=== PATIENT | female | born 2005 | race Caucasian/White ===

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

== ENCOUNTER 2023-02-06 16:21 | Emergency (ER) | payer OTHER, SELFPAY ==
--- NOTE | ~2023-02-06 | XR_ITS ---
EXAMINATION: XR ANKLE, RIGHT CLINICAL INFORMATION: Status post injury. Pain COMPARISON: None available. TECHNIQUE: AP, lateral, and mortise views of the right ankle. FINDINGS: No fracture. Alignment is anatomic. No erosions. Joint spaces are maintained. Soft tissues are normal. XR/XR ankle RT min 3V IMPRESSION: Normal right ankle.
--- NOTE | 2023-02-06 16:48 | ED.LOWEXIN ---
HPI - Extremity Injury (Lower) General Chief Complaint: Extremity Injury, Lower Stated Complaint: ?R ankle sprain Time Seen by Provider: 02/06/23 16:56 Source: patient Mode of arrival: ambulatory Limitations: no limitations History of Present Illness HPI Narrative: 17 yo female with history of morbid obesity presents to the ER for evaluation of right ankle pain after she twisted it while walking down the stairs today. Limited weight bearing since. She developed swelling shortly after the injury. Pain is located on the top of the ankle and the lateral aspect. She denies and numbness or tingling. No other injuries. MD complaint: ankle injury Onset (ago): hour(s) Injury: Right: ankle Type of Injury: inversion Place: home Severity: severe Severity scale (1-10): 9 Relieving factors: immobilization and rest Exacerbating factors: weight bearing, movement and palpation Context: fall Associated symptoms: swelling and unable to bear weight Other symptoms: none Related Data Home Medications Medication Instructions Recorded Confirmed cholecalciferol (vitamin D3) 50 100 mcg PO DAILY 10/03/21 02/24/22 mcg (2,000 unit) capsule oxcarbazepine 300 mg 300 mg PO DAILY 10/03/21 02/24/22 tablet,extended release 24 hr (Oxtellar XR) oxcarbazepine 600 mg 1,200 mg PO QPM 10/03/21 02/24/22 tablet,extended release 24 hr (Oxtellar XR) Previous Rx's Medication Instructions Recorded cyanocobalamin (vitamin B-12) 250 250 mcg PO DAILY #30 tabs 10/10/21 mcg tablet Allergies Allergy/AdvReac Type Severity Reaction Status Date / Time grass pollen Allergy Mild throat Verified 01/18/23 14:07 latex [LATEX] Allergy Unknown RASH Verified 01/18/23 14:07 Review of Systems Review of Systems: Yes all other systems are reviewed and are negative [facility] Past Medical History Medical History Epilepsy Surgical History Hx of tonsillectomy Family History Family History Mother Diabetes Father No problems noted. Brother No problems noted. Sister No problems noted. Social History Social History Alcohol intake: never Patient Tobacco Use Status: Never used Tobacco Advance Directives: No Advance Directives Information Provided: No Physical Exam Vital Signs: Vital Signs: Last Vital Signs Temp 98.3 F 02/06/23 16:50 Pulse 86 02/06/23 16:50 Resp 18 02/06/23 16:50 BP 156/93 H 02/06/23 16:50 Pulse Ox 100 02/06/23 16:50 O2 Del Method Room Air 02/06/23 16:50 BMI result Body Mass Index 51.5 Appearance: Alert. Oriented X3. No acute distress. HEENT: normal inspection CVS: Normal heart rate and rhythm. Pulses normal. Respiratory: No respiratory distress. Skin: Skin warm and dry. Normal skin color. Normal skin turgor. No rashes. Extremities: right ankle with moderate swelling of the lateral malleolus and anterior ankle. no gross deformity. limited plantarflexion and dorsiflexion due to pain. foot is warm and well perfused. NV intact distally. Neuro: Oriented X 3. No motor deficit. No sensory deficit. Medical Decision Making Medical Decision Making MDM Narrative: 17 yo female presenting for right ankle pain after twisting injury today. unable to bear weight since the injury x-ray negative for fracture will treat for sprain, crutches and thi wrap provided. patient counseled on dx and tx. stable for d/c home Differential Diagnosis Differential Diagnoses: The differential diagnosis associated with the presentation includes ankle sprain, ankle strain, ankle fracture Independent Interpretation I performed an independent interpretation of an: Plain X-Ray Interpretation: no appreciated fracture, agree w/ radiology read Radiology Impression Discussion of test interpretation with radiology: I have reviewed the radiologist's reading. Radiologist Impression: XR/XR ankle RT min 3V IMPRESSION: Normal right ankle. Independent Historian Clinical information obtained from an independent historian. History obtained from or confirmed by: Parent External Record Review External record reviewed: Prior outpatient labs Prescription Management I considered prescription management with: Pain Medication Chronic Conditions Patient?s care impacted by: Other (morbid obesity) Critical Care Time Critical Care Time Critical Care Time: No Discharge Plan Discharge Clinical Impression: Ankle sprain and strain Patient Disposition: Home, Self-Care Instructions: Ankle Sprain (DC) Additional Instructions: Your x-ray today was normal. Rest your ankle and elevate your foot when possible. Recommend THI wrap for support and compression. Use ice several times per day for the next 48 hours. You may bear weight as tolerated. If pain is too severe, use crutches until better. Take Motrin and/or Tylenol as needed for pain. Follow up with your doctor as needed. Prescriptions: No Action cyanocobalamin (vitamin B-12) 250 mcg tablet 250 mcg PO DAILY Qty: 30 5RF Oxtellar XR 600 mg tablet extended release 24 hr 1,200 mg PO QPM Oxtellar XR 300 mg tablet extended release 24 hr 300 mg PO DAILY cholecalciferol (vitamin D3) 50 mcg (2,000 unit) capsule 100 mcg PO DAILY Interventions: ED Discharge Assessment Last Done: 02/06/23 17:41 Discharge Date/Time: 02/06/23 17:42
[2023-02-06 16:50] VITALS: BP 156/93; PULSE 86; RESP 18; TEMP 36.8; O2SAT 100; BMI 51.5
== END 2023-02-06 17:42 | disposition home or self-care (01) ==
LOC: HO.ED 17:34
PROVIDERS: Emergency Provider Internal Medicine; PCP Pediatrics
DX: S93.401A Sprain of unspecified ligament of right ankle, initial encounter (principal); W10.9XXA Fall (on) (from) unspecified stairs and steps, initial encounter; Y93.9 Activity, unspecified; Y92.9 Unspecified place or not applicable; Y99.9 Unspecified external cause status; Z79.899 Other long term (current) drug therapy
CPT/HCPCS: 73610; 99282; 99283

== ENCOUNTER 2023-02-26 10:37 | Outpatient (AMB) | payer OTHER, SELFPAY ==
--- NOTE | 2023-02-26 10:38 | MHC.OFFVISWM ---
Intake VS Expanded 02/26/23 10:46 Height 5 ft 5 in Weight 301 lb 12.8 oz BMI 50.2 BP 139/81 Blood Pressure Location Rt brachial Blood Pressure Position Sitting Pulse 103 H Pulse Source Pulse Oximeter Temp 97.2 F Temperature Source Temporal Artery Scan Pulse Oximetry 98 Oxygen Delivery Method Room Air Body Fat 146.0 Body Fat Percentage 48.4 Free Fat Mass 155.6 Muscle Mass 148.0 Visceral Mass 14.0 Water Mass 112.2 Intake Visit Reasons: (OV) Re-Est SW Building Rental Manager Required: No Allergies grass pollen Allergy (Mild, Verified 02/26/23 10:42) throat latex [LATEX] Allergy (Unknown, Verified 02/26/23 10:42) RASH Medication List - Last Reconciled 02/26/23 by TEE Fritz cholecalciferol (vitamin D3) 100 mcg PO DAILY cyanocobalamin (vitamin B-12) 250 mcg PO DAILY oxcarbazepine ER (Oxtellar XR) 1,200 mg PO QPM oxcarbazepine ER (Oxtellar XR) 300 mg PO DAILY HPI HPI Comments History of Present Illness Details Pt is here to re-start the [facility] [place] [place] Weight Management surgical weight loss program. She was in the program September through March 2022 and left because she was not yet ready. She feels as though she is now ready to commit. Her goal is to lose weight and achieve a healthy lifestyle. She reports first being concerned about her weight over the last 2-3 years, highest weight to date was 301. Current weight is 301.8 pounds with a BMI of 50.2. She has tried multiple methods of weight loss including fad diets and without permanent results. She lives with her family. She currently is not working. She wakes at:?8 am, and goes to bed at?10 pm. Dinner is at 4 pm. Breakfast: skip or sausages, w fruit AM snack: skip Lunch: rice and chicken or beef w rice PM snack: fruit Dinner: rice and meat After dinner: skip Other snacks: none Liquids: 32-48 oz water, 2-3 x per week 20 oz sprite, 20 oz oj 3-4 x per week Alcohol/marijuana/tobacco intake: none Exercise: walking, no gym membership, has [facility] Medical History Epilepsy Surgical History Hx of tonsillectomy Family History Mother Diabetes Father No problems noted. Brother No problems noted. Sister No problems noted. Social History Alcohol intake: never Patient Tobacco Use Status: Never used Tobacco Review of Systems Const All systems reviewed & are unremarkable except as noted in HPI and below Physical Exam Vital Signs: Last Vital Signs Temp 97.2 F 02/26/23 10:46 Pulse 103 H 02/26/23 10:46 BP 139/81 02/26/23 10:46 Pulse Ox 98 02/26/23 10:46 Oxygen Delivery Method Room Air 02/26/23 10:46 BMI result Body Mass Index 50.2 Const General: cooperative, healthy appearing and no acute distress Orientation/consciousness: patient oriented x3 HEENT Head: Yes normal to inspection Ears: hearing grossly normal bilaterally General nose exam: Normal external nose present Face and sinus: Yes normal facial exam Eyes General: appearance normal, both eyes and all related structures Resp Effort & Inspection: normal respiratory effort Auscultation: clear to auscultation bilaterally Cardio Rate: regular rate Rhythm: regular rhythm Heart sounds: S1 normal heart sound present and S2 normal heart sound present GI Inspection: Yes normal to inspection, No distended and Yes obesity Palpation (GI): Soft to palpation, nontender and no guarding Auscultation: normal bowel sounds Skin General skin exam: no rashes or lesions noted Neuro General: patient oriented x3 Extrem General: No edema Psych Appearance: grossly normal Mental Status: mental status grossly normal Speech and movement: Normal speech and movement present Affect: normal affect Attitude: cooperative Assessment & Plan Assessment & Plan (1) Morbid obesity: Code(s): E66.01 - Morbid (severe) obesity due to excess calories Plan: This is a?17 yo female who will re-start our SWL program to prepare for bariatric surgery.? Blood work, h pylori , CXR, ECG, Abd US and UGI have been ordered. She is being scheduled for RD and BH initial consultations. She will start SWL classes and watch the first three videos before her next appointment. ? Adequate sleep of 7-8 hours per night discussed, awakening at 8 am and going to bed around 10 pm ? Purchase body composition analyzer scale (Germania ayala or Dottie recommended) and check weight weekly. The best time to do this is first thing in the morning after going to the bathroom. 1. Nutritional counseling: Be sure to careful read the number of scoops per shake Start with 2 Premier Protein shakes ([employer], [employer], [facility]), First shake (2 scoops in 8-10 oz low fat unsweetened almond milk or water) at 9am-11am, []am-[]pm 1 protein bar (Fulfil bars at [employer], [facility], or [employer]) at 12pm-2pm. Another shake with 1 scoop in 8 oz unsweetened almond milk at 2pm-4pm. Dinner at 4pm (10 forks of protein and 10 forks of salad/vegetables). Meal to include lean meat (beef, fish, pork, turkey, chicken), cooked vegetables or a salad with olive oil and/or fruits (berries, pears, apples, kiwi). Avoid salt, breads, potatoes, rice, pasta, desserts. Another bar at 7pm-9pm. Try to drink 64 oz of water daily and avoid soda and juices. ?2. Each shake would be drunk slowly, like coffee in a period of 2 hours. ?3. Cut each bar in 4 pieces and eat each piece in 30 min ?to make each bar last 2 hours. ?4. I emphasized the importance of measuring accurately the food portion and measure it carefully when serving the food on the plate ?5. The meal portions include 10 full-size forks of meat and 10 full-size forks of salad. You always eat the meat portion but you can replace up to half of the forks of salad/vegetables with rice, potatoes or pasta, or a fruit ?if you like. The less you do it the better weight loss will be. ?6. One full-size fork is what can be scooped on the fork without falling aside and not what can be bit with the fork. Use regular forks like those you find in a typical restaurant. ?7.? Please send me weight measurements as soon as possible and then once a week. Always include your diet and exercise plan. Alternatively come weekly at the office for weight checks and send me the measurements. ?8. Exercise counseling: Begin by watching a stretching for beginners video. Start slowly and begin to stretch your muscles. You should do this before and after each exercise session to prevent injury. Please consider joining [facility] gym near your home. Ask the retail advertising sales manager or one of the trainers how to use the machines if you are unfamiliar with them. Start elliptical with a resistance of 2. Increase resistance by 1 every 3 min to your most comfortable resistance with a max resistance of 8. Reduce the resistance by 1 every 3 minutes back down to 2 and repeat cycles for 300 calories. Alternatively, start treadmill with a speed of 3.0 and incline of 0, increasing incline by 1 every 3 minutes to the highest comfortable level (max 6 for now) then decrease in the same fashion. Repeat process to a goal of 300 calories. Goal of 2000 calories burned or more weekly. You may also consider use of the stationary bike. The easiest would be to chose the fat-burn or interval training program on the machine and do this until you reach the 300 calorie goal. Alternatively, you can manually adjust the resistance in a similar fashion as mentioned above, (resistance of 2-8 with a goal speed of 12 mph). Tracking calories is essential. 9. Alternatively start walking outside daily, tracking calories with a goal of 300 calories per day, daily. You can download the sherif [employer] which can track your time, distance and calories while walking outside. You press start in the sherif when you start and then stop when you are finished. You can apply the above recommendations to your elliptical machine at home if you are not yet able to join the gym. 10.? It is important to avoid for at least 18 months postoperatively and it has been discussed at the information session 11. Please get labs, EKG and chest X-Ray within 1 week. 12. Discussed and answered all questions regarding?obtained consent to participate in the [facility]?Registry. 13. Please follow the diet plan exactly, without any change. If you do not like something about the plan or you feel hungry, you need to communicate with me so I can help you revise the plan. You should not change the plan yourself. Text me at [phone] 14. Goal is to lose at least 12 pounds in the first month 15. Goal is to lose 10% of your weight before surgery, which is about 30 lbs. Ultimate weight goal: 271 lbs before surgery Patient is morbidly obese and is not considered stable at this time.?I spent a total of 70 minutes reviewing/updating records, examining the patient and counseling the patient on weight management as detailed above. Orders: Orders Vitamin B12 and Folate Today E66.01 - Morbid (severe) obesity due to excess calories Comprehensive Met. Panel Today E66.01 - Morbid (severe) obesity due to excess calories C Reactive Protein Today E66.01 - Morbid (severe) obesity due to excess calories Ferritin Today E66.01 - Morbid (severe) obesity due to excess calories Hemoglobin A1c Today E66.01 - Morbid (severe) obesity due to excess calories Insulin Today E66.01 - Morbid (severe) obesity due to excess calories IRON PROFILE Today E66.01 - Morbid (severe) obesity due to excess calories Lipid Panel Today E66.01 - Morbid (severe) obesity due to excess calories PTHI Today E66.01 - Morbid (severe) obesity due to excess calories TSH reflex Free T4 Today E66.01 - Morbid (severe) obesity due to excess calories Vitamin A Today E66.01 - Morbid (severe) obesity due to excess calories Vitamin B1 Today E66.01 - Morbid (severe) obesity due to excess calories Vitamin D 25-OH Total Today E66.01 - Morbid (severe) obesity due to excess calories Zinc Today E66.01 - Morbid (severe) obesity due to excess calories ECG 12 lead EKG Today E66.01 - Morbid (severe) obesity due to excess calories FL upper GI w air Today E66.01 - Morbid (severe) obesity due to excess calories Complete Blood Count Auto Diff Today E66.01 - Morbid (severe) obesity due to excess calories H Pylori Breath Test Today E66.01 - Morbid (severe) obesity due to excess calories US abdomen comp w elastography Today E66.01 - Morbid (severe) obesity due to excess calories XR chest 2V Today E66.01 - Morbid (severe) obesity due to excess calories Referrals Behavioral Health Referral E66.01 - Morbid (severe) obesity due to excess calories Nutrition/Dietitian Referral E66.01 - Morbid (severe) obesity due to excess calories Coding Level of Care Code Est Pt Level 5 (52678) Diagnoses Morbid obesity E66.01 Time Spent (min) 70
[2023-02-26 10:46] VITALS: BP 139/81; PULSE 103; TEMP 36.2; O2SAT 98; BMI 50.2
== END 2023-02-26 12:10 | disposition home or self-care (01) ==
PROVIDERS: PCP Pediatrics; Visit Provider Physician Assistant Surgical
DX: E66.01 Morbid (severe) obesity due to excess calories (principal); Z68.54 Body mass index [BMI] pediatric, 95th percentile for age to less than 120% of the 95th percentile for age
CPT/HCPCS: 99215

== ENCOUNTER → 2023-02-26 10:37 | Outpatient (BNVA) | payer OTHER, SELFPAY | PROVIDERS: PCP Pediatrics; Visit Provider Physician Assistant Surgical | DX: E66.01 Morbid (severe) obesity due to excess calories (principal); Z68.43 Body mass index [BMI] 50.0-59.9, adult | CPT/HCPCS: 99212 ==

== ENCOUNTER 2023-03-09 07:12 | Outpatient (REF) | payer OTHER, SELFPAY ==
--- NOTE | ~2023-03-09 | XR_ITS ---
EXAMINATION: XR CHEST 2 VIEWS CLINICAL INFORMATION: Morbid obesity. COMPARISON: Chest radiographs dated 10/07/2021. TECHNIQUE: Frontal and lateral views of the chest were obtained. FINDINGS: The heart, great vessels, pulmonary vasculature and mediastinum are normal. The lungs show no focal infiltrate, effusion or pneumothorax. There is no acute osseous abnormality. XR/XR chest 2V IMPRESSION: No active cardiopulmonary disease.
--- NOTE | 2023-03-09 07:21 | ECG_ITS ---
Test Reason : e66.01 Blood Pressure : / mmHG Vent. Rate : 077 BPM Atrial Rate : 077 BPM P-R Int : 146 ms QRS Dur : 088 ms QT Int : 400 ms P-R-T Axes : 037 046 048 degrees QTc Int : 452 ms Normal sinus rhythm Normal ECG When compared with ECG of 07-OCT-2021 15:04, No significant change was found Referred By: David Mock Electronically Signed By:RODO GARRETT
[2023-03-09 07:29] LABS: MANUAL DIFF FLAG NO
[2023-03-09 07:50] LABS: Basophils Percent Auto 0.2 % (0-2); Eosinophils Absolute Auto 0.1 X10*3/uL (0.0-0.4); Eosinophils Percent Auto 0.9 % (0-4); Hematocrit 38.5 % (37.0-47.0); Hemoglobin 12.7 g/dl (12.0-16.0); Imm Gran Abs Auto 0.01 X10*3/uL (0.00-0.03); Imm Gran Pct Auto 0.1 % (0.0-0.4); Lymphocytes Absolute Auto 2.3 X10*3/uL (1.2-4.9); Lymphocytes Percent Auto 28.4 % (20-40); Mean Corpuscular Hemoglobin 25.9 pg (27.0-33.0); Mean Corpuscular Volume 78.6 fL (80.0-98.0); Mean Platelet Volume 10.9 fL (9.4-12.3); Monocytes Absolute Auto 0.6 X10*3/uL (0.1-1.2); Neutrophils Absolute Auto 5.1 x10*3/uL (2.0-8.3); Neutrophils Percent Auto 63.4 % (45-73); Platelet Count 257 X10*3/uL (160-400); Red Cell Distribution Width 13.9 % (11.0-16.0)
[2023-03-09 07:54] LABS: Estimated Average Glucose 97 mg/dL
[2023-03-09 08:03] LABS: Alanine Aminotransferase 14 U/L (0-31); Albumin Level 4.3 g/dL (3.5-5.0); Alkaline Phosphatase 102 U/L (39-117); Anion Gap 13 (12-20); Aspartate Amino Transferase 14 U/L (5-31); Bilirubin Total 0.3 mg/dL (0.0-1.0); Blood Urea Nitrogen 16 mg/dL (9-16); C Reactive Protein 0.77 mg/dL (< or = 0.50); Carbon Dioxide 22 mmol/L (22-29); Chloride 107 mmol/L (96-108); Cholesterol 193 mg/dL (<200); Estimated Glomerular Filt Rate > 60; Glucose Random 91 mg/dL (60-115); HDL Cholesterol 46 mg/dL (>40); Iron 50 mcg/dL (30-160); LDL Cholesterol Calculated 129 mg/dL (<100); Percent Iron Saturation 20 % (15-50); Potassium 3.7 mmol/L (3.3-5.1); Sodium 138 mmol/L (135-145); Total Iron Binding Capacity 256 mcg/dL (228-428); Triglycerides 91 mg/dL (<150); Unsaturated Iron Binding 206 ug/dL
[2023-03-09 08:17] LABS: Ferritin 37 ng/mL (10-122); Insulin 18 uU/mL (2-29); TSH reflex Free T4 4.63 uIU/mL (0.32-4.0); Vitamin D 25-OH Total 73.6 ng/mL (>30)
[2023-03-09 08:37] LABS: Folate 9.2 ng/mL (> or = 4.0); Vitamin B12 564 pg/mL (200-900)
[2023-03-09 08:58] LABS: Free T4 (Free Thyroxine) 0.83 ng/dL (0.71-1.85)
[2023-03-11 12:39] LABS: Calcium (PTHI) 9.6 mg/dL (8.9-10.4); PTHI 44 pg/mL (16-77)
[2023-03-14 00:34] LABS: Zinc 86 mcg/dL (60-130)
[2023-03-14 16:13] LABS: Vitamin B1 8 nmol/L (8-30)
[2023-03-15 17:24] LABS: Vitamin A 31 mcg/dL (26-72)
== END 2023-03-09 07:13 | disposition home or self-care (01) ==
LOC: HO.XRAY 07:12
PROVIDERS: Visit Provider Physician Assistant Surgical
DX: E66.01 Morbid (severe) obesity due to excess calories (principal)
CPT/HCPCS: 36415; 71046; 80053; 80061; 82306; 82607; 82728; 82746; 83036; 83525; 83540; 83970; 84425; 84439; 84443; 84590; 84630; 85025; 86140; 93005

== ENCOUNTER 2023-03-29 13:29 | Outpatient (AMB) | payer OTHER, SELFPAY ==
--- NOTE | 2023-03-29 13:07 | MHC.AMNUTRGE ---
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 Allergies grass pollen Allergy (Mild, Verified 02/26/23 10:42) throat latex [LATEX] Allergy (Unknown, Verified 02/26/23 10:42) RASH HPI Nutrition Presentation Details LOTUS NOTES ADMINISTRATOR weight 300# current weight 293# SHe is Re-establishing in our program Reason for consult elevated BMI Diet Assmnt Details 9am premier premade 12pm fullfill bar 2pm shake 4pm dinner - cucumbers and chicken 7pm shake started Feb 27 Exercise; walking outside 15 minutes or less and lifting (but later reports just lifting things during the day) SWL online classes: She cancelled appt with TEE Hernandez yesterday due to feeling sick. She n/s to apt with Crys on 03/14. Dietary counseling reduction Diagnosis Nutrition problem #1 overweight/obesity As related to (etiology) #1 excess energy intake and physical inactivity As evidenced by (sign/symptom) #1 high BMI Monitoring/Goals Nutrition problem monitoring total energy intake, level of knowledge/skill, total PRO intake, total CHO intake, weight and oral fluids Outcome progress not met Learning/Education Readiness to learn fair Stages of change action Most Recent Diabetes Results: Cholesterol 193 mg/dL (<200) 03/09/23 HDL Cholesterol 46 mg/dL (>40) 03/09/23 Triglycerides 91 mg/dL (<150) 03/09/23 Creatinine 0.80 mg/dL (0.5-1.4) 03/09/23 Blood Urea Nitrogen 16 mg/dL (9-16) 03/09/23 Sodium 138 mmol/L (135-145) 03/09/23 Potassium 3.7 mmol/L (3.3-5.1) 03/09/23 Chloride 107 mmol/L (96-108) 03/09/23 Carbon Dioxide 22 mmol/L (22-29) 03/09/23 Calcium 10.0 mg/dL (8.4-10.2) 03/09/23 AST 14 U/L (5-31) 03/09/23 ALT 14 U/L (0-31) 03/09/23 Total Protein 8.0 g/dL (6.5-8.0) 03/09/23 Albumin 4.3 g/dL (3.5-5.0) 03/09/23 [facility] Medical History Epilepsy Surgical History Hx of tonsillectomy Family History Mother Diabetes Father No problems noted. Brother No problems noted. Sister No problems noted. Social History Alcohol intake: never Patient Tobacco Use Status: Never used Tobacco Assessment & Plan Assessment & Plan (1) Morbid obesity: Code(s): E66.01 - Morbid (severe) obesity due to excess calories Patient Instructions: unsure if pt is ready for surgical program. Minimally engaged today. Did no schedule a nutrition follow up but is not cleared and will need to take classes as well. Telehealth Telehealth Location of provider rendering services: other (home address [facility] ) Location of patient: address on file Patient Identification confirmed using: Name, : Yes Telehealth method: voice only Patient verbally consented to treatment: Yes Patient verbally consented to billing insurance company: Yes Patient informed of any privacy concerns related to visit: Yes Minutes spent on Phone/Video with Pt.: 15 Coding Level of Care Code Nutr Indiv Subseq (21478) Diagnoses Morbid obesity E66.01 Time Spent (min) 15
[2023-03-29 13:18] VITALS: BMI 48.8
--- OUTSIDE RECORDS SUMMARY | 2023-03-29 13:30 | XMS_ITS | Continuity of Care Document ---
Author Name Unknown Organization [facility] Address [address] [place] [id number]- Care Team Providers Care Pet Nutrition Specialist Name Role Phone Jose Harris MD, Kulwant Sheikh Primary Care Physicia n [place] [facility] [place]24[place] - 01/24/[address] [address]- [facility] Discharge Disposition: A-D/C Home Attending Physician: Kendy Yu MD Admitting Physician: Kendy Yu MD Referring Physician: Not on Staff, Referring MD Allergies, Adverse Reactions, Alerts Substance Reaction Severity Status Latex Active Other Environmental Allergy Active Medications Advair Diskus 100 mcg-50 mcg inhalation powder 1 puffs, Inhalation, 2 times a day, 0 Refills, Maintenance Start Date: 08/02/12 Status: Ordered clonazepam 1 mg oral tablet, disintegrating See Instructions, 1 tablet between cheek and gums prn seizure greater than 3 minutes Two labelled bottles please, # 8 tablet, 0 Refills, Maintenance Start Date: 06/18/12 Status: Ordered Diastat AcuDial 10 mg rectal kit = 10 mg, Rectally, Once, PRN as needed for seizure activity longer than 5 minutes, # 1 kit, 0 Refills, Soft Stop, 09/09/16 6:18:19 Start Date: 09/09/16 Status: Ordered diazepam 10 mg rectal kit 1 each = 10 mg, Rectally, Once, PRN seizure activity, Give 1 tab rectally for seizure lasting more than 3 minutes. Written directions given to Mom, # 1 kit, 0 Refills, Soft Stop, Kit Start Date: 06/15/12 Status: Ordered EpiPen 2-Theodore = 0.3 mg, Intramuscular, Once, 0 Refills, Maintenance Start Date: 06/18/12 Status: Ordered ibuprofen 400 mg oral tablet 1 tablet = 400 mg, By Mouth, Every 6 hours, PRN as needed for pain, # 12 tablet, 0 Refills, Maintenance, 12/04/14 0:26:44, Tablet Start Date: 12/04/14 Stop Date: 12/07/14 Status: Ordered levetiracetam 100 mg/mL oral solution 3 mL = 300 mg, By Mouth, 2 times a day, 0 Refills, Maintenance, Solution Start Date: 06/23/13 Status: Ordered montelukast 5 mg oral tablet, chewable 1 tablet = 5 mg, Chew, Daily in PM, # 30 tablet, 0 Refills, Maintenance, Chew Tablet Start Date: 06/23/13 Status: Ordered ondansetron 4 mg oral tablet, disintegrating 1 tablet = 4 mg, By Mouth, Every 8 hours, # 10 tablet, 0 Refills, Soft Stop, Tablet, 1 tablet By Mouth Every 8 hours Start Date: 06/23/13 Status: Ordered Oxcarbazepine Liquid 3 mL, By Mouth, 2 times a day, 3 bT=[id number], 0 Refills, Maintenance, Suspension Start Date: 06/23/13 Status: Ordered ProAir HFA 2 puffs, Inhalation, 4 times a day, 0 Refills, Maintenance Start Date: 06/18/12 Status: Ordered pyridoxine 50 mg oral tablet 1 tablet = 50 mg, By Mouth, 2 times a day, # 60 tablet, 5 Refills, Maintenance Start Date: 11/21/12 Stop Date: 05/20/13 Status: Ordered Vitamin D3 By Mouth, 0 Refills, Maintenance, 10/15/17 10:22:05 EDT Start Date: 10/15/17 Status: Ordered Zantac 150 oral tablet 1 tablet = 150 mg, By Mouth, 2 times a day, # 28 tablet, 0 Refills, Maintenance, 12/04/14 0:26:29, Tablet Start Date: 12/04/14 Stop Date: 12/18/14 Status: Ordered Problem List Condition Effective Dates Status Health Status Inform ant Abdominal Pain(Confirmed) Active Asthma(Confirmed) Active Bloody diarrhea(Confirmed) Active Developmental delay(Confirmed) Active Migraines(Confirmed) Active Seizure disorder(Confirmed) 1 Active 1Nocturnal seizures with repetitive centro-temporal spikes on EEG Vital Signs Most recent to oldest [Reference Range]: 1 2 Height 162 cm (01/24/20 2:30 PM) Weight 119 kg (01/24/20 2:30 PM) Oxygen Saturation [94-100 %] 100 % (01/24/20 3:59 PM) 98 % (01/24/20 2:30 PM) Pulse Rate [55-90 bpm] 95 bpm *H* (01/24/20 3:59 PM) 114 bpm *H* (01/24/20 2:30 PM) Blood Pressure [80-130/50-80 mm Hg] 114/ 83mm Hg (01/24/20 3:59 PM) 108/82mm Hg (01/24/20 2:30 PM) Respiratory Rate [16-30 br/min] 18 br/mi n (01/24/20 3:59 PM) 20 br/min (01/24/20 2:30 PM) Temperature [96.8-100.4 DegF] 98.5 DegF (01/24/20 3:59 PM) 98.1 DegF (01/24/20 2:30 PM) Mode of Delivery (Oxygen) Room air (01/24/20 3:59 PM) Room air (01/24/20 2:30 PM) Blood pressure sites Arm, left (01/24/20 3:59 PM) Arm, left (01/24/20 2:30 PM) Temperature Route Oral (01/24/20 3:59 PM) Oral (01/24/20 2:30 PM) Dry Weight 119 kg (01/24/20 2:30 PM) Weight Obtained Via Standing scale (01/24/20 2:30 PM) Dry Weight Obtained Via Standing scale (01/24/20 2:30 PM)
--- OUTSIDE RECORDS SUMMARY | 2023-03-29 13:30 | XMS_ITS | Continuity of Care Document ---
Author Name Unknown Organization [facility] Address [address] [place] [address]- Care Team Providers Care Pole Framer Name Role Phone Jose Harris MD, Kulwant Sheikh Primary Care Physicia n En[place] [facility] [place]21 - 03/10/21 [facility] [address] [place] [phone]- Attending Physician: Abigail Sterling Admitting Physician: AdmtrAbigail Referring Physician: Admtr, [id number] Allergies, Adverse Reactions, Alerts Substance Reaction Severity [...] By Mouth, 2 times a day, 3 qL=269pf, 0 Refills, Maintenance, Suspension Start Date: 06/23/13 [...]
--- OUTSIDE RECORDS SUMMARY | 2023-03-29 13:31 | XMS_ITS | Summary of Care ---
Author Name Unknown Organization [facility] spital Address [address] [place] [id number]- Care Team Providers Care Azure Architect Name Role Phone KELSEY VARGAS MD Primary Care Physicia n Encounter CHB_CSN [id number] Date(s): 09/24/19 - 09/24/[address] [address]- [facility] Discharge Disposition: Discharge Attending Physician: VINCENT DICK, MEGHA HUANG Referring Physician: KELSEY VARGAS MD Allergies, Adverse Reactions, Alerts Substance Reaction Severity Status eggs diarrhea Moderate Active Latex Allergy Active Medications albuterol PRN as needed for shortness of breath or wheezing, Entered: 05/20/19 15:27:57 EST Start Date: 05/20/19 Status: Ordered Diastat AcuDial 20 mg rectal kit Dose: 12.5 mg, IN, As Directed, PRN seizures longer than 5 min, Dispense Quantity: 1 kit, Refills: 1, Entered: 05/10/15 11:59:05 EST Start Date: 05/10/15 Stop Date: 05/10/15 Status: Discontinued Diastat AcuDial 20 mg rectal kit Dose: 12.5 mg, IN, As Directed, PRN seizures longer than 5 min, Dispense Quantity: 2 kit, Refills: 1, Entered: 05/10/15 12:15:41 EST Start Date: 05/10/15 Stop Date: 10/09/16 Status: Discontinued Diastat AcuDial 20 mg rectal kit Dose: 12.5 mg, IN, As Directed, PRN seizures longer than 5 min, Dispense Quantity: 1 kit, Entered: 10/16/14 17:22:23 EDT, Therapy Maintenance Start Date: 10/16/14 Stop Date: 10/23/14 Status: Discontinued Diastat AcuDial 20 mg rectal kit Dose: 12.5 mg, IN, As Directed, PRN seizures longer than 5 min, Dispense Quantity: 1 kit, Refills: 1, Entered: 10/23/14 14:12:38 EDT, Therapy Maintenance Start Date: 10/23/14 Stop Date: 05/10/15 Status: Discontinued Diastat AcuDial 20 mg rectal kit Dose: 12.5 mg, IN, As Directed, PRN seizures longer than 5 min, Dispense Quantity: 2 kit, Refills: 1, Entered: 10/09/16 13:21:15 EDT Start Date: 10/09/16 Stop Date: 05/15/18 Status: Discontinued Diastat AcuDial 20 mg rectal kit Dose: 20 mg, IN, As Directed, PRN seizures longer than 5 min, Dispense Quantity: 2 kit, Refills: 1,Entered: 07/26/18 11:27:01 EST Start Date: 07/26/18 Status: Ordered Diastat AcuDial 20 mg rectal kit Dose: 20 mg, IN, As Directed, PRN seizures longer than 5 min, Dispense Quantity: 2 kit, Refills: 1,Entered: 05/15/18 11:22:31 EST Start Date: 05/15/18 Stop Date: 07/26/18 Status: Discontinued FLUoxetine 10 mg oral capsule Dose: 10 mg, Dose Amount: 1 cap, PO, daily, Entered: 05/10/15 12:16:50 EST Start Date: 05/10/15 Stop Date: 10/09/16 Status: Discontinued Keppra 100 mg/mL oral solution Dose: 600 mg, Dose Amount: 6 mL, PO, BID, Dispense Quantity: 360 mL, Refills: 5, Entered: 02/07/13 13:18:03 EDT, Therapy Maintenance Start Date: 02/07/13 Stop Date: 09/12/13 Status: Discontinued Keppra 100 mg/mL oral solution Dose: 600 mg, Dose Amount: 6 mL, PO, BID, Entered: 11/01/12 8:11:44 EDT, Therapy Maintenance Start Date: 11/01/12 Stop Date: 02/07/13 Status: Discontinued KlonoPIN 1 mg oral tablet See Instructions, PRN use for clusters, Special Instructions: clonazepam 1mg for clusters of seizures (such as more than 3 in an hour), Dispense Quantity: 20 tab, Refills: 0, Entered: 05/10/15 11:58:28 EST Start Date: 05/10/15 Stop Date: 01/13/16 Status: Discontinued KlonoPIN 1 mg oral tablet See Instructions, PRN use for clusters, Special Instructions: clonazepam 1mg for clusters of seizures (such as more than 3 in an hour), Dispense Quantity: 20 tab, Refills: 0, Entered: 10/23/14 14:12:31 EDT, Therapy Maintenance Start Date: 10/23/14 Stop Date: 05/10/15 Status: Discontinued KlonoPIN 1 mg oral tablet See Instructions, PRN use for clusters, Special Instructions: clonazepam 1mg for clusters of seizures (such as more than 3 in an hour), Dispense Quantity: 20 tab, Refills: 2, Entered: 11/01/18 11:00:44 EDT Start Date: 11/01/18 Stop Date: 03/14/19 Status: Discontinued KlonoPIN 1 mg oral tablet See Instructions, PRN use for clusters, Special Instructions: clonazepam 1mg for clusters of seizures (such as more than 3 in an hour), Dispense Quantity: 20 tab, Refills: 0, Entered: 10/09/16 13:21:09 EDT Start Date: 10/09/16 Stop Date: 05/15/18 Status: Discontinued KlonoPIN 1 mg oral tablet See Instructions, PRN use for clusters, Special Instructions: clonazepam 1mg for clusters of seizures (such as more than 3 in an hour), Dispense Quantity: 20 tab, Refills: 2, Entered: 03/14/19 11:12:08 EDT, Stop: 03/14/19 11:13:53 EDT Start Date: 03/14/19 Stop Date: 03/14/19 Status: Completed KlonoPIN 1 mg oral tablet See Instructions, PRN use for clusters, Special Instructions: clonazepam 1mg for clusters of seizures (such as more than 3 in an hour), Dispense Quantity: 20 tab, Refills: 2, Entered: 03/14/19 11:13:53 EDT Start Date: 03/14/19 Status: Ordered KlonoPIN 1 mg oral tablet See Instructions, PRN use for clusters, Special Instructions: clonazepam 1mg for clusters of seizures (such as more than 3 in an hour), Dispense Quantity: 20 tab, Refills: 0, Entered: 01/13/16 11:55:07 EDT Start Date: 01/13/16 Stop Date: 10/09/16 Status: Discontinued KlonoPIN 1 mg oral tablet See Instructions, PRN use for clusters, Special Instructions: clonazepam 1mg for clusters of seizures (such as more than 3 in an hour), Dispense Quantity: 20 tab, Refills: 1, Entered: 07/26/18 11:26:54 EST Start Date: 07/26/18 Stop Date: 11/01/18 Status: Discontinued KlonoPIN 1 mg oral tablet See Instructions, PRN use for clusters, Special Instructions: clonazepam 1mg for clusters of seizures (such as more than 3 in an hour), Dispense Quantity: 20 tab, Refills: 1, Entered: 05/15/18 11:16:54 EST Start Date: 05/15/18 Stop Date: 07/26/18 Status: Discontinued naproxen sodium 550 mg oral tablet Dose: 550 mg, Dose Amount: 1 tab, PO, BID, PRN Pain, Dispense Quantity: 30 tab, Refills: 5, Entered: 05/10/15 12:05:48 EST Start Date: 05/10/15 Stop Date: 05/15/18 Status: Discontinued naproxen sodium 550 mg oral tablet Dose: 550 mg, Dose Amount: 1 tab, PO, BID, PRN Pain, Dispense Quantity: 30 tab, Refills: 1, Entered: 11/01/18 11:00:49 EDT, [employer] [id number] Start Date: 11/01/18 Stop Date: 03/14/19 Status: Discontinued naproxen sodium 550 mg oral tablet Dose: 550 mg, Dose Amount: 1 tab, PO, BID, PRN Pain, Dispense Quantity: 30 tab, Refills: 1, Entered: 03/14/19 11:12:28 EDT, [facility] #[id number] Start Date: 03/14/19 Status: Ordered naproxen sodium 550 mg oral tablet Dose: 550 mg, Dose Amount: 1 tab, PO, BID, PRN Pain, Dispense Quantity: 30 tab, Refills: 1, Entered: 07/26/18 11:27:13 EST, [employer] [id number] Start Date: 07/26/18 Stop Date: 11/01/18 Status: Discontinued naproxen sodium 550 mg oral tablet Dose: 550 mg, Dose Amount: 1 tab, PO, BID, PRN Pain, Dispense Quantity: 30 tab, Refills: 1, Entered: 05/15/18 11:16:28 EST, [employer] [id number] Start Date: 05/15/18 Stop Date: 07/26/18 Status: Discontinued Ortho-Cyclen 0.25 mg-35 mcg oral tablet Dose Amount: 1 tab, PO, daily, Dispense Quantity: 1 packet, Refills: 11, Entered: 06/10/19 11:38:25EST, [employer] #[id number], 116.2 Start Date: 06/10/19 Status: Ordered OXcarbazepine 300 mg oral tablet Dose: 450 mg, Dose Amount: 1.5 tab, PO, BID, Dispense Quantity: 90 tab, Refills: 5, Entered: 10/16/14 17:20:33 EDT, Therapy Maintenance, [employer] [id number] Start Date: 10/16/14 Stop Date: 05/10/15 Status: Discontinued OXcarbazepine 300 mg oral tablet Dose: 600 mg, Dose Amount: 2 tab, PO, BID, Special Instructions: Please schedule follow-up appointment with Dr. Duenas for future refills, Dispense Quantity: 60 tab, Refills: 3, Entered: 12/07/15 13:14:00 EDT, [employer] [id number] Start Date: 12/07/15 Stop Date: 01/13/16 Status: Discontinued Oxtellar XR 300 mg oral tablet, extended release Dose: 600 mg, Dose Amount: 2 tab, PO, BID, Dispense Quantity: 120 tab, Refills: 5, Entered: 05/10/15 11:55:50 EST, [employer] [id number] Start Date: 05/10/15 Stop Date: 10/25/15 Status: Discontinued Oxtellar XR 300 mg oral tablet, extended release Dose: 1,200 mg, Dose Amount: 4 tab, PO, daily, Dispense Quantity: 120 tab, Refills: 5, Entered: 11/01/18 11:00:59 EDT, Dispense as Written, [employer] [id number] Start Date: 11/01/18 Stop Date: 11/20/18 Status: Discontinued Oxtellar XR 300 mg oral tablet, extended release Dose: 600 mg, Dose Amount: 2 tab, PO, BID, Dispense Quantity: 120 tab, Refills: 5, Entered: 10/09/16 13:21:33 EDT, [employer] [id number] Start Date: 10/09/16 Stop Date: 10/09/16 Status: Discontinued Oxtellar XR 300 mg oral tablet, extended release See Instructions, Special Instructions: 2 tab in AM, 3 tab at nigiht PO, Dispense Quantity: 150 tab, Refills: 5, Entered: 10/09/16 13:28:55 EDT, [employer] [id number] Start Date: 10/09/16 Stop Date: 10/30/17 Status: Discontinued Oxtellar XR 300 mg oral tablet, extended release See Instructions, Special Instructions: 2 tabs, BID, Dispense Quantity: 120 tab, Refills: 4, Entered: 10/30/17 15:07:00 EDT, [employer] [id number] Start Date: 10/30/17 Stop Date: 05/15/18 Status: Discontinued Oxtellar XR 300 mg oral tablet, extended release Dose: 600 mg, Dose Amount: 2 tab, PO, BID, Dispense Quantity: 120 tab, Refills: 5, Entered: 01/13/16 12:10:11 EDT, [employer] [id number] Start Date: 01/13/16 Stop Date: 10/09/16 Status: Discontinued Oxtellar XR 300 mg oral tablet, extended release Dose: 600 mg, Dose Amount: 2 tab, PO, BID, Dispense Quantity: 120 tab, Refills: 5, Entered: 10/25/15 13:28:00 EDT, [employer] [id number] Start Date: 10/25/15 Stop Date: 01/13/16 Status: Discontinued Oxtellar XR 300 mg oral tablet, extended release Dose: 1,200 mg, Dose Amount: 4 tab, PO, daily, Dispense Quantity: 120 tab, Refills: 0, Entered: 11/22/18 18:10:00 EDT, [employer] [id number] Start Date: 11/22/18 Stop Date: 11/26/18 Status: Discontinued Oxtellar XR 300 mg oral tablet, extended release See Instructions, Special Instructions: 2 tabs, BID, Dispense Quantity: 120 tab, Refills: 5, Entered: 05/15/18 11:16:25 EST, [employer] [id number] Start Date: 05/15/18 Stop Date: 07/26/18 Status: Discontinued Oxtellar XR 300 mg oral tablet, extended release Dose: 1,200 mg, Dose Amount: 4 tab, PO, daily, Dispense Quantity: 120 tab, Refills: 5, Entered: 11/20/18 11:39:00 EDT, Dispense as Written, [employer] [id number] Start Date: 11/20/18 Stop Date: 11/22/18 Status: Discontinued Oxtellar XR 600 mg oral tablet, extended release Dose: 1,200 mg, Dose Amount: 2 tab, PO, daily, Dispense Quantity: 60 tab, Refills: 5, Entered: 11/26/18 12:07:00 EDT, [employer] [id number] Start Date: 11/26/18 Stop Date: 03/14/19 Status: Discontinued Oxtellar XR 600 mg oral tablet, extended release Dose: 1,200 mg, Dose Amount: 2 tab, PO, QPM, Dispense Quantity: 60 tab, Refills: 5, Entered: 08/05/19 12:36:00 EST, [employer] #[id number] Start Date: 08/05/19 Status: Ordered Oxtellar XR 600 mg oral tablet, extended release Dose: 1,200 mg, Dose Amount: 2 tab, PO, daily, Dispense Quantity: 60 tab, Refills: 5, Entered: 03/14/19 11:10:44 EDT, [employer] #[id number] Start Date: 03/14/19 Stop Date: 08/05/19 Status: Discontinued Oxtellar XR 600 mg oral tablet, extended release Dose: 1,200 mg, Dose Amount: 2 tab, PO, daily, Special Instructions: take at night, Dispense Quantity: 60 tab, Refills: 5, Entered: 07/26/18 11:25:48 EST, [employer] [id number] Start Date: 07/26/18 Stop Date: 11/01/18 Status: Discontinued Oxtellar XR 600 mg oral tablet, extended release Dose: 1,200 mg, Dose Amount: 2 tab, PO, daily, Dispense Quantity: 60 tab, Refills: 0, Entered: 11/22/18 16:46:00 EDT, [employer] [id number] Start Date: 11/22/18 Stop Date: 11/22/18 Status: Discontinued Symbicort 80 mcg-4.5 mcg/inh inhalation aerosol INH, PRN Respiratory Distress, Entered: 05/20/19 15:28:18 EST Start Date: 05/20/19 Status: Ordered Trileptal 300 mg/5 mL (60 mg/mL) oral suspension Dose: 360 mg, Dose Amount: 6 mL, PO, BID, Dispense Quantity: 360 mL, Refills: 5, Entered: 10/16/14 15:23:27 EDT, Therapy Maintenance, [employer] [id number] Start Date: 10/16/14 Stop Date: 10/16/14 Status: Discontinued Trileptal 300 mg/5 mL (60 mg/mL) oral suspension Dose: 360 mg, Dose Amount: 6 mL, PO, BID, Dispense Quantity: 360 mL, Refills: 5, Entered: 09/12/13 13:15:12 EDT, Therapy Maintenance Start Date: 09/12/13 Stop Date: 10/16/14 Status: Discontinued Trileptal 300 mg/5 mL (60 mg/mL) oral suspension Dose: 360 mg, Dose Amount: 6 mL, PO, BID, Dispense Quantity: 360 mL, Refills: 5, Entered: 02/07/13 13:23:33 EDT, Therapy Maintenance Start Date: 02/07/13 Stop Date: 09/12/13 Status: Discontinued Trokendi XR 25 mg oral capsule, extended release Dose: 100 mg, Dose Amount: 4 cap, PO, daily, Dispense Quantity: 120 cap, Refills: 5, Entered: 11/01/18 11:35:18 EDT, [employer] [id number] Start Date: 11/01/18 Stop Date: 03/14/19 Status: Discontinued Trokendi XR 25 mg oral capsule, extended release Dose: 100 mg, Dose Amount: 4 cap, PO, daily, Dispense Quantity: 120 cap, Refills: 5, Entered: 03/14/19 11:10:46 EDT, [facility] #[id number] Start Date: 03/14/19 Stop Date: 09/10/19 Status: Ordered Vitamin D3 1000 intl units/10 mL oral liquid Dose: 1,000 unit, Dose Amount: 10 mL, PO, daily, Dispense Quantity: 300 mL, Refills: 5, Entered: 10/16/14 15:23:29 EDT, Therapy Maintenance, [employer] [id number] Start Date: 10/16/14 Stop Date: 10/23/14 Status: Discontinued Vitamin D3 1000 intl units/10 mL oral liquid Dose: 2,000 unit, Dose Amount: 20 mL, PO, daily, Dispense Quantity: 600 mL, Refills: 5, Entered: 10/23/14 14:12:29 EDT, Therapy Maintenance, [employer] [id number] Start Date: 10/23/14 Stop Date: 05/10/15 Status: Discontinued Vitamin D3 1000 intl units/10 mL oral liquid Dose: 1,000 unit, Dose Amount: 10 mL, PO, daily, Dispense Quantity: 300 mL, Refills: 5, Entered: 09/12/13 13:15:52 EDT, Therapy Maintenance Start Date: 09/12/13 Stop Date: 10/16/14 Status: Discontinued Vitamin D3 1000 intl units/10 mL oral liquid Dose: 1,000 unit, Dose Amount: 10 mL, PO, daily, Dispense Quantity: 300 mL, Refills: 5, Entered: 02/07/13 13:19:08 EDT, Therapy Maintenance Start Date: 02/07/13 Stop Date: 09/12/13 Status: Discontinued Vitamin D3 2000 intl units oral capsule Dose: 2,000 unit, Dose Amount: 1 cap, PO, daily, Dispense Quantity: 30 cap, Refills: 5, Entered: 05/10/15 11:55:33 EST, [employer] [id number] Start Date: 05/10/15 Stop Date: 10/25/15 Status: Discontinued Vitamin D3 2000 intl units oral capsule Dose: 4,000 unit, Dose Amount: 2 cap, PO, daily, Dispense Quantity: 120 cap, Refills: 5, Entered: 11/01/18 11:00:42 EDT, [employer] [id number] Start Date: 11/01/18 Stop Date: 03/14/19 Status: Discontinued Vitamin D3 2000 intl units oral capsule Dose: 2,000 unit, Dose Amount: 1 cap, PO, daily, Dispense Quantity: 60 cap, Refills: 5, Entered: 10/09/16 13:21:06 EDT, [employer] [id number] Start Date: 10/09/16 Stop Date: 05/15/18 Status: Discontinued Vitamin D3 2000 intl units oral capsule Dose: 4,000 unit, Dose Amount: 2 cap, PO, daily, Dispense Quantity: 120 cap, Refills: 5, Entered: 03/14/19 11:11:01 EDT, [facility] #[id number] Start Date: 03/14/19 Status: Ordered Vitamin D3 1999 intl units oral capsule Dose: 2,000 unit, Dose Amount: 1 cap, PO, daily, Dispense Quantity: 60 cap, Refills: 5, Entered: 01/13/16 12:11:00 EDT, [employer] [id number] Start Date: 01/13/16 Stop Date: 10/09/16 Status: Discontinued Vitamin D3 2000 intl units oral capsule Dose: 4,000 unit, Dose Amount: 2 cap, PO, daily, Dispense Quantity: 120 cap, Refills: 5, Entered: 07/26/18 11:26:13 EST, [employer] [id number] Start Date: 07/26/18 Stop Date: 11/01/18 Status: Discontinued Vitamin D3 2000 intl units oral capsule Dose: 2,000 unit, Dose Amount: 1 cap, PO, BID, Dispense Quantity: 60 cap, Refills: 5, Entered: 10/25/15 13:28:00 EDT, [employer] [id number] Start Date: 10/25/15 Stop Date: 01/13/16 Status: Discontinued Vitamin D3 2000 intl units oral capsule Dose: 2,000 unit, Dose Amount: 1 cap, PO, daily, Dispense Quantity: 60 cap, Refills: 5, Entered: 05/15/18 11:15:55 EST, [employer] [id number] Start Date: 05/15/18 Stop Date: 12/10/18 Status: Discontinued Vitamin D3 2000 intl units oral capsule Dose: 4,000 unit, Dose Amount: 2 cap, PO, daily, Dispense Quantity: 120 cap, Refills: 5, Entered: 06/10/18 16:03:00 [facility] [id number] Start Date: 06/10/18 Stop Date: 07/26/18 Status: Discontinued Problem List Condition Effective Dates Status Health Status Inform ant Acanthosis nigricans(Confirmed) 1 Active Encephalopathy.(Confirmed) 2 Active Global developmental delay.( Confirmed) 3 Active Intractable epilepsy(Confirmed) 4 Active Learning disability.(Confirmed) 5 Active Morbid obesity(Confirmed) 6 Active 1Added by [facility] 2Added by [facility] 3Added by [facility] 4Added by [facility] 5Added by [facility] 6Added by [facility]
--- OUTSIDE RECORDS SUMMARY | 2023-03-29 13:31 | XMS_ITS | Summary of Care ---
Author Name Unknown Organization [facility], [facility]. Address [address] [place] [address]. [place] [address]- Care Team Providers Care Tax Appraiser Name Role Phone KELSEY VARGAS MD Primary Care Physicia n Encounter CHB_CSN [id number] Date(s): 01/19/20 - 01/01/20 [facility], [place] [address]- [facility] Attending Physician: LEONID MARI MD Referring Physician: KELSEY VARGAS MD Allergies, Adverse Reactions, Alerts Substance Reaction Severity Status eggs diarrhea Moderate Active Latex Allergy Active Problem List Condition Effective Dates Status Health Status Inform ant Abnormal body odor(Confirmed) 1 Active Acanthosis nigricans(Confirmed) 2 Active Encephalopathy.(Confirmed) 3 Active Global developmental delay.( Confirmed) 4 Active Intractable epilepsy(Confirmed) 5 Active Learning disability.(Confirmed) 6 Active Morbid obesity(Confirmed) 7 Active 1Added by [facility] 2Added by [facility] 3Added by [facility] 4Added by [facility] 5Added by [facility] 6Added by [facility] 7Added by C
--- OUTSIDE RECORDS SUMMARY | 2023-03-29 13:31 | XMS_ITS | Summary of Care ---
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 Phone KELSEY VARGAS MD Primary Care Physicia n Encounter CHB_CSN [id number] Date(s): 09/30/19 - 09/30/[address] [address]- [facility] Encounter Diagnosis Psychological and behavioral factors associated with disorders or diseases classified elsewhere(Final) - Morbid (severe) obesity due to excess calories(Final) - Body mass index (BMI) pediatric, greater than or equal to 95th percentile for age(Final) - Discharge Disposition: Discharge Attending Physician: KOLTON CAROLINA PsyD Referring Physician: KELSEY VARGAS MD Allergies, Adverse Reactions, Alerts Substance Reaction Severity Status eggs diarrhea Moderate Active Latex Allergy Active Medications albuterol PRN as needed for shortness of breath or wheezing, Entered: 05/20/19 15:27:57 EST Start Date: 05/20/19 Status: Ordered Diastat AcuDial 20 mg rectal kit Dose: 12.5 mg, [place], As Directed, PRN seizures longer than 5 min, Dispense Quantity: 1 kit, Refills: 1, Entered: 05/10/15 11:59:05 EST Start Date: 05/10/15 Stop Date: 05/10/15 Status: Discontinued Diastat AcuDial 20 mg rectal kit Dose: 12.5 mg, [place], As Directed, PRN seizures longer than 5 min, Dispense Quantity: 2 kit, Refills: 1, Entered: 05/10/15 12:15:41 EST Start Date: 05/10/15 Stop Date: 10/09/16 Status: Discontinued Diastat AcuDial 20 mg rectal kit Dose: 12.5 mg, [place], As Directed, PRN seizures longer than 5 min, Dispense Quantity: 1 kit, Entered: 10/16/14 17:22:23 EDT, Therapy Maintenance Start Date: 10/16/14 Stop Date: 10/23/14 Status: Discontinued Diastat AcuDial 20 mg rectal kit Dose: 12.5 mg, [place], As Directed, PRN seizures longer than 5 min, Dispense Quantity: 1 kit, Refills: 1, Entered: 10/23/14 14:12:38 EDT, Therapy Maintenance Start Date: 10/23/14 Stop Date: 05/10/15 Status: Discontinued Diastat AcuDial 20 mg rectal kit Dose: 12.5 mg, [place], As Directed, PRN seizures longer than 5 min, Dispense Quantity: 2 kit, Refills: 1, Entered: 10/09/16 13:21:15 EDT Start Date: 10/09/16 Stop Date: 05/15/18 Status: Discontinued Diastat AcuDial 20 mg rectal kit Dose: 20 mg, W[place], As Directed, PRN seizures longer than 5 min, Dispense Quantity: 2 kit, Refills: 1,Entered: 07/26/18 11:27:01 EST Start Date: 07/26/18 Status: Ordered Diastat AcuDial 20 mg rectal kit Dose: 20 mg, W[place], As Directed, PRN seizures longer than 5 [...] tab, Refills: 1, Entered: 11/01/18 11:00:49 EDT, [facility] [id number] Start Date: 11/01/18 Stop Date: 03/14/19 Status: Discontinued naproxen sodium 550 mg oral tablet Dose: 550 mg, Dose Amount: 1 tab, PO, BID, PRN Pain, Dispense Quantity: 30 tab, Refills: 1, Entered: 03/14/19 11:12:28 EDT, [facility] #[id number] Start Date: 03/14/19 Status: Ordered naproxen sodium 550 mg oral tablet Dose: 550 mg, Dose Amount: 1 tab, PO, BID, PRN Pain, Dispense Quantity: 30 tab, Refills: 1, Entered: 07/26/18 11:27:13 EST, [facility] [id number] Start Date: 07/26/18 Stop Date: 11/01/18 Status: Discontinued naproxen sodium 550 mg oral tablet Dose: 550 mg, Dose Amount: 1 tab, PO, BID, PRN Pain, Dispense Quantity: 30 tab, Refills: 1, Entered: 05/15/18 11:16:28 EST, [facility] [id number] Start Date: 05/15/18 Stop Date: 07/26/18 Status: Discontinued Ortho-Cyclen 0.25 mg-35 mcg oral tablet Dose Amount: 1 tab, PO, daily, Dispense Quantity: 1 packet, Refills: 11, Entered: 06/10/19 11:38:25EST, [facility] #[id number], 116.2 Start Date: 06/10/19 Status: Ordered OXcarbazepine 300 mg oral tablet Dose: 450 mg, Dose Amount: 1.5 tab, PO, BID, Dispense Quantity: 90 tab, Refills: 5, Entered: 10/16/14 17:20:33 EDT, Therapy Maintenance, [facility] [id number] Start Date: 10/16/14 Stop Date: 05/10/15 Status: Discontinued OXcarbazepine 300 mg oral tablet Dose: 600 mg, Dose Amount: 2 tab, PO, BID, Special Instructions: Please schedule follow-up appointment with Dr. Duenas for future refills, Dispense Quantity: 60 tab, Refills: 3, Entered: 12/07/15 13:14:00 EDT, [facility] [id number] Start Date: 12/07/15 Stop Date: 01/13/16 Status: Discontinued Oxtellar XR 300 mg oral tablet, extended release Dose: 600 mg, Dose Amount: 2 tab, PO, BID, Dispense Quantity: 120 tab, Refills: 5, Entered: 05/10/15 11:55:50 EST, [facility] [id number] Start Date: 05/10/15 Stop Date: 10/25/15 Status: Discontinued Oxtellar XR 300 mg oral tablet, extended release Dose: 1,200 mg, Dose Amount: 4 tab, PO, daily, Dispense Quantity: 120 tab, Refills: 5, Entered: 11/01/18 11:00:59 EDT, Dispense as Written, [facility] [id number] Start Date: 11/01/18 Stop Date: 11/20/18 Status: Discontinued Oxtellar XR 300 mg oral tablet, extended release Dose: 600 mg, Dose Amount: 2 tab, PO, BID, Dispense Quantity: 120 tab, Refills: 5, Entered: 10/09/16 13:21:33 EDT, [facility] [id number] Start Date: 10/09/16 Stop Date: 10/09/16 Status: Discontinued Oxtellar XR 300 mg oral tablet, extended release See Instructions, Special Instructions: 2 tab in AM, 3 tab at nigiht PO, Dispense Quantity: 150 tab, Refills: 5, Entered: 10/09/16 13:28:55 EDT, [facility] [id number] Start Date: 10/09/16 Stop Date: 10/30/17 Status: Discontinued Oxtellar XR 300 mg oral tablet, extended release See Instructions, Special Instructions: 2 tabs, BID, Dispense Quantity: 120 tab, Refills: 4, Entered: 10/30/17 15:07:00 EDT, [facility] [id number] Start Date: 10/30/17 Stop Date: 05/15/18 Status: Discontinued Oxtellar XR 300 mg oral tablet, extended release Dose: 600 mg, Dose Amount: 2 tab, PO, BID, Dispense Quantity: 120 tab, Refills: 5, Entered: 01/13/16 12:10:11 EDT, [facility] [id number] Start Date: 01/13/16 Stop Date: 10/09/16 Status: Discontinued Oxtellar XR 300 mg oral tablet, extended release Dose: 600 mg, Dose Amount: 2 tab, PO, BID, Dispense Quantity: 120 tab, Refills: 5, Entered: 10/25/15 13:28:00 EDT, [facility] [id number] Start Date: 10/25/15 Stop Date: 01/13/16 Status: Discontinued Oxtellar XR 300 mg oral tablet, extended release Dose: 1,200 mg, Dose Amount: 4 tab, PO, daily, Dispense Quantity: 120 tab, Refills: 0, Entered: 11/22/18 18:10:00 EDT, [facility] [id number] Start Date: 11/22/18 Stop Date: 11/26/18 Status: Discontinued Oxtellar XR 300 mg oral tablet, extended release See Instructions, Special Instructions: 2 tabs, BID, Dispense Quantity: 120 tab, Refills: 5, Entered: 05/15/18 11:16:25 [facility], [facility] [id number] Start Date: 05/15/18 Stop Date: 07/26/18 Status: Discontinued Oxtellar XR 300 mg oral tablet, extended release Dose: 1,200 mg, Dose Amount: 4 tab, PO, daily, Dispense Quantity: 120 tab, Refills: 5, Entered: 11/20/18 11:39:00 EDT, Dispense as Written, [facility] [id number] Start Date: 11/20/18 Stop Date: 11/22/18 Status: Discontinued Oxtellar XR 600 mg oral tablet, extended release Dose: 1,200 mg, Dose Amount: 2 tab, PO, daily, Dispense Quantity: 60 tab, Refills: 5, Entered: 11/26/18 12:07:00 EDT, [facility] 88813 Start Date: 11/26/18 Stop Date: 03/14/19 Status: Discontinued Oxtellar XR 600 mg oral tablet, extended release Dose: 1,200 mg, Dose Amount: 2 tab, PO, QPM, Dispense Quantity: 60 tab, Refills: 5, Entered: 08/05/19 12:36:00 EST, [facility] #[id number] Start Date: 08/05/19 Status: Ordered Oxtellar XR 600 mg oral tablet, extended release Dose: 1,200 mg, Dose Amount: 2 tab, PO, daily, Dispense Quantity: 60 tab, Refills: 5, Entered: 03/14/19 11:10:44 EDT, [facility] #[id number] Start Date: 03/14/19 Stop Date: 08/05/19 Status: Discontinued Oxtellar XR 600 mg oral tablet, extended release Dose: 1,200 mg, Dose Amount: 2 tab, PO, daily, Special Instructions: take at night, Dispense Quantity: 60 tab, Refills: 5, Entered: 07/26/18 11:25:48 EST, [facility] [id number] Start Date: 07/26/18 Stop Date: 11/01/18 Status: Discontinued Oxtellar XR 600 mg oral tablet, extended release Dose: 1,200 mg, Dose Amount: 2 tab, PO, daily, Dispense Quantity: 60 tab, Refills: 0, Entered: 11/22/18 16:46:00 EDT, [facility] [id number] Start Date: 11/22/18 Stop Date: 11/22/18 Status: Discontinued Symbicort 80 mcg-4.5 mcg/inh inhalation aerosol INH, PRN Respiratory Distress, Entered: 05/20/19 15:28:18 EST Start Date: 05/20/19 Status: Ordered Trileptal 300 mg/5 mL (60 mg/mL) oral suspension Dose: 360 mg, Dose Amount: 6 mL, PO, BID, Dispense Quantity: 360 mL, Refills: 5, Entered: 10/16/14 15:23:27 EDT, Therapy Maintenance, [facility] [id number] Start Date: 10/16/14 Stop Date: 10/16/14 Status: [...] cap, Refills: 5, Entered: 11/01/18 11:35:18 EDT, [facility] [id number] Start Date: 11/01/18 Stop Date: 03/14/19 Status: Discontinued Trokendi XR 25 mg oral capsule, extended release Dose: 100 mg, Dose Amount: 4 cap, PO, daily, Dispense Quantity: 120 cap, Refills: 5, Entered: 03/14/19 11:10:46 EDT, [facility] #[id number] Start Date: 03/14/19 Stop Date: 09/10/19 Status: Ordered Vitamin D3 1000 intl units/10 mL oral liquid Dose: 1,000 unit, Dose Amount: 10 mL, PO, daily, Dispense Quantity: 300 mL, Refills: 5, Entered: 10/16/14 15:23:29 EDT, Therapy Maintenance, [facility] [id number] Start Date: 10/16/14 Stop Date: 10/23/14 Status: Discontinued Vitamin D3 1000 intl units/10 mL oral liquid Dose: 2,000 unit, Dose Amount: 20 mL, PO, daily, Dispense Quantity: 600 mL, Refills: 5, Entered: 10/23/14 14:12:29 EDT, Therapy Maintenance, [facility] [id number] Start Date: 10/23/14 Stop Date: 05/10/15 Status: [...] cap, Refills: 5, Entered: 05/10/15 11:55:33 EST, [facility] [id number] Start Date: 05/10/15 Stop Date: 10/25/15 Status: Discontinued Vitamin D3 2000 intl units oral capsule Dose: 4,000 unit, Dose Amount: 2 cap, PO, daily, Dispense Quantity: 120 cap, Refills: 5, Entered: 11/01/18 11:00:42 EDT, [facility] [id number] Start Date: 11/01/18 Stop Date: 03/14/19 Status: Discontinued Vitamin D3 2000 intl units oral capsule Dose: 2,000 unit, Dose Amount: 1 cap, PO, daily, Dispense Quantity: 60 cap, Refills: 5, Entered: 10/09/16 13:21:06 EDT, [facility] [id number] Start Date: 10/09/16 Stop Date: 05/15/18 Status: Discontinued Vitamin D3 2000 intl units oral capsule Dose: 4,000 unit, Dose Amount: 2 cap, PO, daily, Dispense Quantity: 120 cap, Refills: 5, Entered: 03/14/19 11:11:01 EDT, [facility] #[id number] Start Date: 03/14/19 Status: Ordered Vitamin D3 2000 intl units oral capsule Dose: 2,000 unit, Dose Amount: 1 cap, PO, daily, Dispense Quantity: 60 cap, Refills: 5, Entered: 01/13/16 12:11:00 EDT, [facility] [id number] Start Date: 01/13/16 Stop Date: 10/09/16 Status: Discontinued Vitamin D3 2000 intl units oral capsule Dose: 4,000 unit, Dose Amount: 2 cap, PO, daily, Dispense Quantity: 120 cap, Refills: 5, Entered: 07/26/18 11:26:13 EST, [facility] [id number] Start Date: 07/26/18 Stop Date: 11/01/18 Status: Discontinued Vitamin D3 2000 intl units oral capsule Dose: 2,000 unit, Dose Amount: 1 cap, PO, BID, Dispense Quantity: 60 cap, Refills: 5, Entered: 10/25/15 13:28:00 EDT, [facility] [id number] Start Date: 10/25/15 Stop Date: 01/13/16 Status: Discontinued Vitamin D3 2000 intl units oral capsule Dose: 2,000 unit, Dose Amount: 1 cap, PO, daily, Dispense Quantity: 60 cap, Refills: 5, Entered: 05/15/18 11:15:55 [facility] 12052 Start Date: 05/15/18 Stop Date: 06/10/18 Status: Discontinued Vitamin D3 2000 intl units oral capsule Dose: 4,000 unit, Dose Amount: 2 cap, PO, daily, Dispense Quantity: 120 cap, Refills: 5, Entered: 06/10/18 16:03:00 [facility] [id number] Start Date: 06/10/18 Stop Date: 07/26/18 Status: Discontinued Problem List Condition Effective Dates Status Health Status Inform ant Acanthosis nigricans(Confirmed) 1 Active Encephalopathy.(Confirmed) 2 Active Global developmental delay.( Confirmed) 3 Active Intractable epilepsy(Confirmed) 4 Active Learning disability.(Confirmed) 5 Active Morbid obesity(Confirmed) 6 Active 1Added by Q[facility] 2Added by Q[facility] 3Added by Q[facility] 4Added by QCC 5Added by Q[facility] 6Added by C
--- OUTSIDE RECORDS SUMMARY | 2023-03-29 13:31 | XMS_ITS | Summary of Care ---
Author Name Unknown Organization [facility], [facility]. Address [address] [place] [address]- Care Team Providers Care Shop Clerk Name Role Phone SAM SOLORZANO, KELSEY Sheikh Primary Care Physicia n Encounter CHB_CSN [id number] Date(s): 10/31/21 - 10/31/21 [facility], [place] [address]- Discharge Disposition: Discharge Attending Physician: LEONID MARI MD Referring Physician: LEONID MARI MD Allergies, Adverse Reactions, Alerts Substance Reaction Severity Status eggs diarrhea Moderate Active Latex Allergy Active Medications Oxtellar XR 300 mg oral tablet, extended release Dose: 300 mg, Dose Amount: 1 tab, PO, daily, Special Instructions: also has 600 mg tabs for total daily dose of 300mg am/ 1200mg pm, Dispense Quantity: 30 tab, Refills: 5, Entered: 10/31/21 14:19:00 EDT, [id number] Start Date: 10/31/21 Stop Date: 04/29/22 Status: Ordered Oxtellar XR 600 mg oral tablet, extended release Dose: 1,200 mg, Dose Amount: 2 tab, PO, QPM, Special Instructions: also takes 300mg tabs total doseof 300mg in am / 1200mg @ HS, Dispense Quantity: 60 tab, Refills: 5, Entered: 10/31/21 14:19:00 EDT, [id number] Start Date: 10/31/21 Stop Date: 04/29/22 Status: Ordered Problem List Condition Effective Dates Status Health Status Inform ant Abnormal body odor(Confirmed) 1 Active Acanthosis nigricans(Confirmed) 2 Active Encephalopathy.(Confirmed) 3 Active Global developmental delay.( Confirmed) 4 Active Intractable epilepsy(Confirmed) 5 Active Learning disability.(Confirmed) 6 Active Morbid obesity(Confirmed) 7 Active 1Added by Q[facility] 2Added by Q[facility] 3Added by QCC 4Added by QCC 5Added by QCC 6Added by QCC 7Added by Q[facility]
--- OUTSIDE RECORDS SUMMARY | 2023-03-29 13:31 | XMS_ITS | Summary of Care ---
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 Phone SAM SOLORZANO, KELSEY Sheikh Primary Care Physicia n Encounter CHB_CSN [id number] Date(s): 12/29/22 - 12/29/22 [facility], [address] [address]- Discharge Disposition: Discharge Attending Physician: LEONID MARI MD Allergies, Adverse Reactions, Alerts Substance Reaction Severity Status Latex Allergy Active Medications naproxen sodium 550 mg oral tablet Dose: 550 mg, Dose Amount: 1 tab, PO, BID, PRN Pain, Dispense Quantity: 30 tab, Refills: 1, Entered: 12/29/22 11:46:00 EDT, [id number] Start Date: 12/29/22 Status: Ordered Oxtellar XR 300 mg oral tablet, extended release Dose: 300 mg, Dose Amount: 1 tab, PO, daily, Special Instructions: also has 600 mg tabs for total daily dose of 300mg am/ 1200mg pm, Dispense Quantity: 90 tab, Refills: 3, Entered: 12/29/22 11:46:00 EDT, [id number] Start Date: 12/29/22 Stop Date: 12/24/23 Status: Ordered Oxtellar XR 600 mg oral tablet, extended release Dose: 1,200 mg, Dose Amount: 2 tab, PO, QPM, Special Instructions: also takes 300mg tabs total doseof 300mg in am / 1200mg @ HS, will need to give 600mg one extra dose on 11/03/2022., Dispense Quantity: 181 tab, Refills: 3, Entered: 12/29/22 11:46:00... Start Date: 12/29/22 Stop Date: 12/24/23 Status: Ordered Vitamin D3 50 mcg (2000 intl units) oral capsule Dose: 4,000 unit, Dose Amount: 2 cap, PO, daily, Dispense Quantity: 180 cap, Refills: 3, Entered: 12/29/22 11:46:00 EDT, [id number] Start Date: 12/29/22 Stop Date: 12/24/23 Status: Ordered zonisamide 50 mg oral capsule Dose: 100 mg, Dose Amount: 2 cap, PO, daily, Dispense Quantity: 60 cap, Refills: 5, Entered: 12/29/22 11:46:00 EDT, [id number] Start Date: 12/29/22 Stop Date: 06/27/23 Status: Ordered Problem List Condition Confirmation Course Effective Dates Status H ealth Status Informant Abnormal body odor 1 Confirmed Active Acanthosis nigricans 2 Confirmed Active Encephalopathy. 3 Confirmed Active Global developmental delay. 4 Confirmed Active Intractable epilepsy 5 Confirmed Active Learning disability. 6 Confirmed Active Morbid obesity 7 Confirmed Active 1Added by QCC 2Added by QCC 3Added by QCC 4Added by QCC 5Added by QCC 6Added by QCC 7Added by QCC Patient Care team information Personnel Name: KELSEY VARGAS MD Address: Address: [address] [place] [id number]
--- OUTSIDE RECORDS SUMMARY | 2023-03-29 13:31 | XMS_ITS | Summary of Care ---
Author Name Unknown Organization [facility] Address [address] [place] [address]- Care Team Providers Care Income Tax Expert Name Role Phone SAM SOLORZANO, KELSEY Sheikh Primary Care Physicia n Encounter CHB_CSN [id number] Date(s): 08/31/20 - 08/31/[address] [address]- [facility] Encounter Diagnosis Morbid obesity(Discharge Diagnosis) - 08/30/20 Acanthosis nigricans(Discharge Diagnosis) - 08/30/20 Attending Physician: DAREK SOLORZANO, JAN Dillon Referring Physician: SAM SOLORZANO, KELSEY Sheikh Allergies, Adverse Reactions, Alerts Substance Reaction Severity [...] by QCC 6Added by QCC 7Added by [facility]
--- OUTSIDE RECORDS SUMMARY | 2023-03-29 13:31 | XMS_ITS | Summary of Care ---
Author Name Unknown Organization [facility], [facility]. Address [address] [place] [address]- Care Team Providers Care Appeals Rn Name Role Phone KELSEY VARGAS MD Primary Care Physicia n Encounter CHB_CSN [id number] Date(s): 01/13/20 - 01/13/20 [facility], [place] [address]- [facility] Encounter Diagnosis Other epilepsy, intractable, without status epilepticus(Final) - Localization-related (focal) (partial) symptomatic epilepsy and epileptic syndromes with complex partial seizures, intractable, without status epilepticus (Final) - Other generalized epilepsy and epileptic syndromes, intractable, without status epilepticus(Final) - Other specified mental disorders due to known physiological condition(Final) - Other encephalopathy(Final) - Other developmental disorders of scholastic skills(Final) - Discharge Disposition: Discharge Attending Physician: ARASH HOOD Referring Physician: KELSEY VARGAS MD Allergies, Adverse Reactions, Alerts Substance Reaction Severity Status eggs diarrhea Moderate Active Latex Allergy Active Medications Oxtellar XR 300 mg oral tablet, extended release Dose: 300 mg, Dose Amount: 1 tab, PO, QAM, Special Instructions: also has 600 mg tabs for total daily dose of 300 mg am/ 1200 mg pm, Dispense Quantity: 30 tab, Refills: 5, Entered: 01/13/20 13:58:00 [facility][id number] Start Date: 01/13/20 Status: Ordered Vitamin D3 2000 intl units (50 mcg) oral capsule Dose: 4,000 unit, Dose Amount: 2 cap, PO, daily, Dispense Quantity: 120 cap, Refills: 5, Entered: 01/13/20 13:57:00 EDT, [facility][id number] Start Date: 01/13/20 Status: Ordered Problem List Condition Effective Dates [...]
--- OUTSIDE RECORDS SUMMARY | 2023-03-29 13:31 | XMS_ITS | Summary of Care ---
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 Phone SAM SOLORZANO, KELSEY Sheikh Primary Care Physicia n Encounter CHB_CSN [id number] Date(s): 10/21/19 - 10/21/[address] [address]- [facility] Encounter Diagnosis Morbid obesity(Discharge Diagnosis) - 10/20/19 Acanthosis nigricans(Discharge Diagnosis) - 10/20/19 Morbid (severe) obesity due to excess calories(Final) - Body mass index (BMI) pediatric, greater than or equal to 95th percentile for age(Final) - Acanthosis nigricans(Final) - Other general symptoms and signs(Final) - Discharge Disposition: Discharge Attending Physician: JAN OSWALD MD Referring Physician: KELSEY VARGAS MD Allergies, Adverse Reactions, Alerts Substance Reaction Severity Status eggs diarrhea Moderate Active Latex Allergy Active Medications albuterol PRN as needed for shortness of breath or wheezing, Entered: 05/20/19 15:27:57 EST Start Date: 05/20/19 Status: Ordered Diastat AcuDial 20 mg rectal kit Dose: 12.5 mg, DC, As Directed, PRN seizures longer than 5 min, Dispense Quantity: 1 kit, Refills: 1, Entered: 05/10/15 11:59:05 EST Start Date: 05/10/15 Stop Date: 05/10/15 Status: Discontinued Diastat AcuDial 20 mg rectal kit Dose: 12.5 mg, DC, As Directed, PRN seizures longer than 5 min, Dispense Quantity: 2 kit, Refills: 1, Entered: 05/10/15 12:15:41 EST Start Date: 05/10/15 Stop Date: 10/09/16 Status: Discontinued Diastat AcuDial 20 mg rectal kit Dose: 12.5 mg, DC, As Directed, PRN seizures longer than 5 min, Dispense Quantity: 1 kit, Entered: 10/16/14 17:22:23 EDT, Therapy Maintenance Start Date: 10/16/14 Stop Date: 10/23/14 Status: Discontinued Diastat AcuDial 20 mg rectal kit Dose: 12.5 mg, DC, As Directed, PRN seizures longer than 5 min, Dispense Quantity: 1 kit, Refills: 1, Entered: 10/23/14 14:12:38 EDT, Therapy Maintenance Start Date: 10/23/14 Stop Date: 05/10/15 Status: Discontinued Diastat AcuDial 20 mg rectal kit Dose: 12.5 mg, DC, As Directed, PRN seizures longer than 5 min, Dispense Quantity: 2 kit, Refills: 1, Entered: 10/09/16 13:21:15 EDT Start Date: 10/09/16 Stop Date: 05/15/18 Status: Discontinued Diastat AcuDial 20 mg rectal kit Dose: 20 mg, DC, As Directed, PRN seizures longer than 5 min, Dispense Quantity: 2 kit, Refills: 1,Entered: 07/26/18 11:27:01 EST Start Date: 07/26/18 Status: Ordered Diastat AcuDial 20 mg rectal kit Dose: 20 mg, DC, As Directed, PRN seizures longer than 5 [...] tab, Refills: 1, Entered: 11/01/18 11:00:49 EDT, [facility] [id number] Start Date: 11/01/18 Stop Date: 03/14/19 Status: Discontinued naproxen sodium 550 mg oral tablet Dose: 550 mg, Dose Amount: 1 tab, PO, BID, PRN Pain, Dispense Quantity: 30 tab, Refills: 1, Entered: 03/14/19 11:12:28 EDT, [facility] #[id number] Start Date: 03/14/19 Status: Ordered naproxen sodium 550 mg oral tablet Dose: 550 mg, Dose Amount: 1 tab, PO, BID, PRN Pain, Dispense Quantity: 30 tab, Refills: 1, Entered: 07/26/18 11:27:13 EST, [facility] [id number] Start Date: 07/26/18 Stop Date: 11/01/18 Status: Discontinued naproxen sodium 550 mg oral tablet Dose: 550 mg, Dose Amount: 1 tab, PO, BID, PRN Pain, Dispense Quantity: 30 tab, Refills: 1, Entered: 05/15/18 11:16:28 EST, [facility] [id number] Start Date: 05/15/18 Stop Date: 07/26/18 Status: Discontinued Ortho-Cyclen 0.25 mg-35 mcg oral tablet Dose Amount: 1 tab, PO, daily, Dispense Quantity: 1 packet, Refills: 11, Entered: 06/10/19 11:38:25EST, [facility] #[id number], 116.2 Start Date: 06/10/19 Status: Ordered OXcarbazepine 300 mg oral tablet Dose: 450 mg, Dose Amount: 1.5 tab, PO, BID, Dispense Quantity: 90 tab, Refills: 5, Entered: 10/16/14 17:20:33 EDT, Therapy Maintenance, [facility] [id number] Start Date: 10/16/14 Stop Date: 05/10/15 Status: Discontinued OXcarbazepine 300 mg oral tablet Dose: 600 mg, Dose Amount: 2 tab, PO, BID, Special Instructions: Please schedule follow-up appointment with Dr. Duenas for future refills, Dispense Quantity: 60 tab, Refills: 3, Entered: 12/07/15 13:14:00 EDT, [facility] [id number] Start Date: 12/07/15 Stop Date: 01/13/16 Status: Discontinued Oxtellar XR 300 mg oral tablet, extended release Dose: 600 mg, Dose Amount: 2 tab, PO, BID, Dispense Quantity: 120 tab, Refills: 5, Entered: 05/10/15 11:55:50 EST, [facility] [id number] Start Date: 05/10/15 Stop Date: 10/25/15 Status: Discontinued Oxtellar XR 300 mg oral tablet, extended release Dose: 1,200 mg, Dose Amount: 4 tab, PO, daily, Dispense Quantity: 120 tab, Refills: 5, Entered: 11/01/18 11:00:59 EDT, Dispense as Written, [facility] [id number] Start Date: 11/01/18 Stop Date: 11/20/18 Status: Discontinued Oxtellar XR 300 mg oral tablet, extended release Dose: 600 mg, Dose Amount: 2 tab, PO, BID, Dispense Quantity: 120 tab, Refills: 5, Entered: 10/09/16 13:21:33 EDT, [facility] [id number] Start Date: 10/09/16 Stop Date: 10/09/16 Status: Discontinued Oxtellar XR 300 mg oral tablet, extended release See Instructions, Special Instructions: 2 tab in AM, 3 tab at nigiht PO, Dispense Quantity: 150 tab, Refills: 5, Entered: 10/09/16 13:28:55 EDT, [facility] [id number] Start Date: 10/09/16 Stop Date: 10/30/17 Status: Discontinued Oxtellar XR 300 mg oral tablet, extended release See Instructions, Special Instructions: 2 tabs, BID, Dispense Quantity: 120 tab, Refills: 4, Entered: 10/30/17 15:07:00 EDT, [facility] [id number] Start Date: 10/30/17 Stop Date: 05/15/18 Status: Discontinued Oxtellar XR 300 mg oral tablet, extended release Dose: 600 mg, Dose Amount: 2 tab, PO, BID, Dispense Quantity: 120 tab, Refills: 5, Entered: 01/13/16 12:10:11 EDT, [facility] [id number] Start Date: 01/13/16 Stop Date: 10/09/16 Status: Discontinued Oxtellar XR 300 mg oral tablet, extended release Dose: 600 mg, Dose Amount: 2 tab, PO, BID, Dispense Quantity: 120 tab, Refills: 5, Entered: 10/25/15 13:28:00 EDT, [facility] [id number] Start Date: 10/25/15 Stop Date: 01/13/16 Status: Discontinued Oxtellar XR 300 mg oral tablet, extended release Dose: 1,200 mg, Dose Amount: 4 tab, PO, daily, Dispense Quantity: 120 tab, Refills: 0, Entered: 11/22/18 18:10:00 EDT, [facility] [id number] Start Date: 11/22/18 Stop Date: 11/26/18 Status: Discontinued Oxtellar XR 300 mg oral tablet, extended release See Instructions, Special Instructions: 2 tabs, BID, Dispense Quantity: 120 tab, Refills: 5, Entered: 05/15/18 11:16:25 EST, [facility] [id number] Start Date: 05/15/18 Stop Date: 07/26/18 Status: Discontinued Oxtellar XR 300 mg oral tablet, extended release Dose: 1,200 mg, Dose Amount: 4 tab, PO, daily, Dispense Quantity: 120 tab, Refills: 5, Entered: 11/20/18 11:39:00 EDT, Dispense as Written, [facility] [id number] Start Date: 11/20/18 Stop Date: 11/22/18 Status: Discontinued Oxtellar XR 600 mg oral tablet, extended release Dose: 1,200 mg, Dose Amount: 2 tab, PO, daily, Dispense Quantity: 60 tab, Refills: 5, Entered: 11/26/18 12:07:00 EDT, [facility] [id number] Start Date: 11/26/18 Stop Date: 03/14/19 Status: Discontinued Oxtellar XR 600 mg oral tablet, extended release Dose: 1,200 mg, Dose Amount: 2 tab, PO, QPM, Dispense Quantity: 60 tab, Refills: 5, Entered: 08/05/19 12:36:00 EST, [facility] #[id number] Start Date: 08/05/19 Status: Ordered Oxtellar XR 600 mg oral tablet, extended release Dose: 1,200 mg, Dose Amount: 2 tab, PO, daily, Dispense Quantity: 60 tab, Refills: 5, Entered: 03/14/19 11:10:44 EDT, [facility] #[id number] Start Date: 03/14/19 Stop Date: 08/05/19 Status: Discontinued Oxtellar XR 600 mg oral tablet, extended release Dose: 1,200 mg, Dose Amount: 2 tab, PO, daily, Special Instructions: take at night, Dispense Quantity: 60 tab, Refills: 5, Entered: 07/26/18 11:25:48 EST, [facility] [id number] Start Date: 07/26/18 Stop Date: 11/01/18 Status: Discontinued Oxtellar XR 600 mg oral tablet, extended release Dose: 1,200 mg, Dose Amount: 2 tab, PO, daily, Dispense Quantity: 60 tab, Refills: 0, Entered: 11/22/18 16:46:00 EDT, [facility] [id number] Start Date: 11/22/18 Stop Date: 11/22/18 Status: Discontinued Symbicort 80 mcg-4.5 mcg/inh inhalation aerosol INH, PRN Respiratory Distress, Entered: 05/20/19 15:28:18 EST Start Date: 05/20/19 Status: Ordered Trileptal 300 mg/5 mL (60 mg/mL) oral suspension Dose: 360 mg, Dose Amount: 6 mL, PO, BID, Dispense Quantity: 360 mL, Refills: 5, Entered: 10/16/14 15:23:27 EDT, Therapy Maintenance, [facility] [id number] Start Date: 10/16/14 Stop Date: 10/16/14 Status: [...] cap, Refills: 5, Entered: 11/01/18 11:35:18 EDT, [facility] [id number] Start Date: 11/01/18 Stop Date: 03/14/19 Status: Discontinued Trokendi XR 25 mg oral capsule, extended release Dose: 100 mg, Dose Amount: 4 cap, PO, daily, Dispense Quantity: 120 cap, Refills: 5, Entered: 03/14/19 11:10:46 EDT, [facility] #[id number] Start Date: 03/14/19 Stop Date: 09/10/19 Status: Ordered Vitamin D3 1000 intl units/10 mL oral liquid Dose: 1,000 unit, Dose Amount: 10 mL, PO, daily, Dispense Quantity: 300 mL, Refills: 5, Entered: 10/16/14 15:23:29 EDT, Therapy Maintenance, [facility] [id number] Start Date: 10/16/14 Stop Date: 10/23/14 Status: Discontinued Vitamin D3 1000 intl units/10 mL oral liquid Dose: 2,000 unit, Dose Amount: 20 mL, PO, daily, Dispense Quantity: 600 mL, Refills: 5, Entered: 10/23/14 14:12:29 EDT, Therapy Maintenance, [facility] [id number] Start Date: 10/23/14 Stop Date: 05/10/15 Status: [...] cap, Refills: 5, Entered: 05/10/15 11:55:33 EST, [facility] [id number] Start Date: 05/10/15 Stop Date: 10/25/15 Status: Discontinued Vitamin D3 2000 intl units oral capsule Dose: 4,000 unit, Dose Amount: 2 cap, PO, daily, Dispense Quantity: 120 cap, Refills: 5, Entered: 11/01/18 11:00:42 EDT, [facility] [id number] Start Date: 11/01/18 Stop Date: 03/14/19 Status: Discontinued Vitamin D3 2000 intl units oral capsule Dose: 2,000 unit, Dose Amount: 1 cap, PO, daily, Dispense Quantity: 60 cap, Refills: 5, Entered: 10/09/16 13:21:06 EDT, [facility] [id number] Start Date: 10/09/16 Stop Date: 05/15/18 Status: Discontinued Vitamin D3 2000 intl units oral capsule Dose: 4,000 unit, Dose Amount: 2 cap, PO, daily, Dispense Quantity: 120 cap, Refills: 5, Entered: 03/14/19 11:11:01 EDT, [facility] #[id number] Start Date: 03/14/19 Status: Ordered Vitamin D3 1999 intl units oral capsule Dose: 2,000 unit, Dose Amount: 1 cap, PO, daily, Dispense Quantity: 60 cap, Refills: 5, Entered: 01/13/16 12:11:00 EDT, [facility] [id number] Start Date: 01/13/16 Stop Date: 10/09/16 Status: Discontinued Vitamin D3 2000 intl units oral capsule Dose: 4,000 unit, Dose Amount: 2 cap, PO, daily, Dispense Quantity: 120 cap, Refills: 5, Entered: 07/26/18 11:26:13 EST, [facility] [id number] Start Date: 07/26/18 Stop Date: 11/01/18 Status: Discontinued Vitamin D3 2000 intl units oral capsule Dose: 2,000 unit, Dose Amount: 1 cap, PO, BID, Dispense Quantity: 60 cap, Refills: 5, Entered: 10/25/15 13:28:00 EDT, [facility] [id number] Start Date: 10/25/15 Stop Date: 01/13/16 Status: Discontinued Vitamin D3 2000 intl units oral capsule Dose: 2,000 unit, Dose Amount: 1 cap, PO, daily, Dispense Quantity: 60 cap, Refills: 5, Entered: 05/15/18 11:15:55 [facility] [id number] Start Date: 05/15/18 Stop Date: 06/10/18 Status: Discontinued Vitamin D3 2000 intl units oral capsule Dose: 4,000 unit, Dose Amount: 2 cap, PO, daily, Dispense Quantity: 120 cap, Refills: 5, Entered: 06/10/18 16:03:00 [facility] [id number] Start Date: 06/10/18 Stop Date: 07/26/18 Status: [...]
--- OUTSIDE RECORDS SUMMARY | 2023-03-29 13:31 | XMS_ITS | Summary of Care ---
Author Name Unknown Organization [facility], [facility]. 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) - Other encephalopathy(Final) - Other specified mental disorders due to known physiological condition(Final) - Headache, unspecified(Final) - Morbid (severe) obesity due to excess calories(Final) - Other developmental disorders of scholastic skills(Final) - Other epilepsy, intractable, without status epilepticus(Final) - Discharge Disposition: Home Attending Physician: LEONID MARI MD Referring Physician: KELSEY VARGAS MD Allergies, Adverse Reactions, Alerts Substance Reaction Severity Status eggs diarrhea Moderate Active Latex Allergy Active Medications Oxtellar XR 300 mg oral tablet, extended release Dose: 300 mg, Dose Amount: 1 tab, PO, daily, Special Instructions: also has 600 mg tabs for total daily dose of 600mg am/ 900mg pm, Dispense Quantity: 30 tab, Refills: 5, Entered: 11/16/20 13:21:00 EDT, [facility]/pharmacy #[id number] Start Date: 11/16/20 Stop Date: 05/15/21 Status: Ordered Oxtellar XR 600 mg oral tablet, extended release Dose: 600 mg, Dose Amount: 1 tab, PO, BID, Special Instructions: also takes 600mg tabs total dose of 600mg in am / 900mg @ HS, Dispense Quantity: 60 tab, Refills: 5, Entered: 11/16/20 13:21:00 EDT, [facility]/pharmacy #[id number] Start Date: 11/16/20 Stop Date: 05/15/21 Status: Ordered Valtoco 20 mg Dose nasal spray Dose: 20 mg, Nasal, 1time, PRN Seizure Activity, Special Instructions: Requires two 10 mg devices. Give 10 mg (one spray) as a single dose in one nostril and immediately follow with 10 mg (one spray)from the second device in the other nostril; do no... Start Date: 11/16/20 Status: Ordered zonisamide 50 mg oral capsule Dose: 200 mg, Dose Amount: 4 cap, PO, daily, Dispense Quantity: 120 cap, Refills: 5, Entered: 11/16/20 13:40:00 EDT, [facility] #[id number] Start Date: 11/16/20 Stop Date: 05/15/21 Status: Ordered Problem List Condition Effective Dates Status Health Status Inform ant Abnormal body odor(Confirmed) 1 Active Acanthosis nigricans(Confirmed) 2 Active Encephalopathy.(Confirmed) 3 Active Global developmental delay.( Confirmed) 4 Active Intractable epilepsy(Confirmed) 5 Active Learning disability.(Confirmed) 6 Active Morbid obesity(Confirmed) 7 Active 1Added by [facility] 2Added by [facility] 3Added by [facility] 4Added by [facility] 5Added by [facility] 6Added by [facility] 7Added by [facility]
--- OUTSIDE RECORDS SUMMARY | 2023-03-29 13:31 | XMS_ITS | Summary of Care ---
Author Name Unknown Organization [facility] spital Address [address] [place] [id number]- Care Team Providers Care Transportation Security Officer Name Role Phone KELSEY VARGAS MD Primary Care Physicia n Encounter [facility]_CSN [id number] Date(s): 09/24/19 - 09/24/[address] [address]- [facility] Discharge Disposition: Discharge Attending Physician: KOLTON CAROLINA PsyD Referring Physician: KELSEY VARGAS MD Allergies, Adverse Reactions, Alerts Substance Reaction Severity Status eggs diarrhea Moderate Active Latex Allergy Active Medications albuterol PRN as needed for shortness of breath or wheezing, Entered: 05/20/19 15:27:57 EST Start Date: 05/20/19 Status: Ordered Diastat AcuDial 20 mg rectal kit Dose: 12.5 mg, PA, As Directed, PRN seizures longer than 5 min, Dispense Quantity: 1 kit, Refills: 1, Entered: 05/10/15 11:59:05 EST Start Date: 05/10/15 Stop Date: 05/10/15 Status: Discontinued Diastat AcuDial 20 mg rectal kit Dose: 12.5 mg, PA, As Directed, PRN seizures longer than 5 min, Dispense Quantity: 2 kit, Refills: 1, Entered: 05/10/15 12:15:41 EST Start Date: 05/10/15 Stop Date: 10/09/16 Status: Discontinued Diastat AcuDial 20 mg rectal kit Dose: 12.5 mg, PA, As Directed, PRN seizures longer than 5 min, Dispense Quantity: 1 kit, Entered: 10/16/14 17:22:23 EDT, Therapy Maintenance Start Date: 10/16/14 Stop Date: 10/23/14 Status: Discontinued Diastat AcuDial 20 mg rectal kit Dose: 12.5 mg, PA, As Directed, PRN seizures longer than 5 min, Dispense Quantity: 1 kit, Refills: 1, Entered: 10/23/14 14:12:38 EDT, Therapy Maintenance Start Date: 10/23/14 Stop Date: 05/10/15 Status: Discontinued Diastat AcuDial 20 mg rectal kit Dose: 12.5 mg, PA, As Directed, PRN seizures longer than 5 min, Dispense Quantity: 2 kit, Refills: 1, Entered: 10/09/16 13:21:15 EDT Start Date: 10/09/16 Stop Date: 05/15/18 Status: Discontinued Diastat AcuDial 20 mg rectal kit Dose: 20 mg, PA, As Directed, PRN seizures longer than 5 min, Dispense Quantity: 2 kit, Refills: 1,Entered: 07/26/18 11:27:01 EST Start Date: 07/26/18 Status: Ordered Diastat AcuDial 20 mg rectal kit Dose: 20 mg, PA, As Directed, PRN seizures longer than 5 [...] tab, Refills: 1, Entered: 11/01/18 11:00:49 EDT, [facility] [id number] Start Date: 11/01/18 Stop Date: 03/14/19 Status: Discontinued naproxen sodium 550 mg oral tablet Dose: 550 mg, Dose Amount: 1 tab, PO, BID, PRN Pain, Dispense Quantity: 30 tab, Refills: 1, Entered: 03/14/19 11:12:28 EDT, [facility] #[id number] Start Date: 03/14/19 Status: Ordered naproxen sodium 550 mg oral tablet Dose: 550 mg, Dose Amount: 1 tab, PO, BID, PRN Pain, Dispense Quantity: 30 tab, Refills: 1, Entered: 07/26/18 11:27:13 EST, [facility] [id number] Start Date: 07/26/18 Stop Date: 11/01/18 Status: Discontinued naproxen sodium 550 mg oral tablet Dose: 550 mg, Dose Amount: 1 tab, PO, BID, PRN Pain, Dispense Quantity: 30 tab, Refills: 1, Entered: 05/15/18 11:16:28 EST, [facility] [id number] Start Date: 05/15/18 Stop Date: 07/26/18 Status: Discontinued Ortho-Cyclen 0.25 mg-35 mcg oral tablet Dose Amount: 1 tab, PO, daily, Dispense Quantity: 1 packet, Refills: 11, Entered: 06/10/19 11:38:25EST, [facility] #[id number], 116.2 Start Date: 06/10/19 Status: Ordered OXcarbazepine 300 mg oral tablet Dose: 450 mg, Dose Amount: 1.5 tab, PO, BID, Dispense Quantity: 90 tab, Refills: 5, Entered: 10/16/14 17:20:33 EDT, Therapy Maintenance, [facility] [id number] Start Date: 10/16/14 Stop Date: 05/10/15 Status: Discontinued OXcarbazepine 300 mg oral tablet Dose: 600 mg, Dose Amount: 2 tab, PO, BID, Special Instructions: Please schedule follow-up appointment with Dr. Duenas for future refills, Dispense Quantity: 60 tab, Refills: 3, Entered: 12/07/15 13:14:00 EDT, [facility] [id number] Start Date: 12/07/15 Stop Date: 01/13/16 Status: Discontinued Oxtellar XR 300 mg oral tablet, extended release Dose: 600 mg, Dose Amount: 2 tab, PO, BID, Dispense Quantity: 120 tab, Refills: 5, Entered: 05/10/15 11:55:50 EST, [facility] [id number] Start Date: 05/10/15 Stop Date: 10/25/15 Status: Discontinued Oxtellar XR 300 mg oral tablet, extended release Dose: 1,200 mg, Dose Amount: 4 tab, PO, daily, Dispense Quantity: 120 tab, Refills: 5, Entered: 11/01/18 11:00:59 EDT, Dispense as Written, [facility] [id number] Start Date: 11/01/18 Stop Date: 11/20/18 Status: Discontinued Oxtellar XR 300 mg oral tablet, extended release Dose: 600 mg, Dose Amount: 2 tab, PO, BID, Dispense Quantity: 120 tab, Refills: 5, Entered: 10/09/16 13:21:33 EDT, [facility] [id number] Start Date: 10/09/16 Stop Date: 10/09/16 Status: Discontinued Oxtellar XR 300 mg oral tablet, extended release See Instructions, Special Instructions: 2 tab in AM, 3 tab at nigiht PO, Dispense Quantity: 150 tab, Refills: 5, Entered: 10/09/16 13:28:55 EDT, [facility] [id number] Start Date: 10/09/16 Stop Date: 10/30/17 Status: Discontinued Oxtellar XR 300 mg oral tablet, extended release See Instructions, Special Instructions: 2 tabs, BID, Dispense Quantity: 120 tab, Refills: 4, Entered: 10/30/17 15:07:00 EDT, [facility] [id number] Start Date: 10/30/17 Stop Date: 05/15/18 Status: Discontinued Oxtellar XR 300 mg oral tablet, extended release Dose: 600 mg, Dose Amount: 2 tab, PO, BID, Dispense Quantity: 120 tab, Refills: 5, Entered: 01/13/16 12:10:11 EDT, [facility] [id number] Start Date: 01/13/16 Stop Date: 10/09/16 Status: Discontinued Oxtellar XR 300 mg oral tablet, extended release Dose: 600 mg, Dose Amount: 2 tab, PO, BID, Dispense Quantity: 120 tab, Refills: 5, Entered: 10/25/15 13:28:00 EDT, [facility] [id number] Start Date: 10/25/15 Stop Date: 01/13/16 Status: Discontinued Oxtellar XR 300 mg oral tablet, extended release Dose: 1,200 mg, Dose Amount: 4 tab, PO, daily, Dispense Quantity: 120 tab, Refills: 0, Entered: 11/22/18 18:10:00 EDT, [facility] [id number] Start Date: 11/22/18 Stop Date: 11/26/18 Status: Discontinued Oxtellar XR 300 mg oral tablet, extended release See Instructions, Special Instructions: 2 tabs, BID, Dispense Quantity: 120 tab, Refills: 5, Entered: 05/15/18 11:16:25 EST, [facility] [id number] Start Date: 05/15/18 Stop Date: 07/26/18 Status: Discontinued Oxtellar XR 300 mg oral tablet, extended release Dose: 1,200 mg, Dose Amount: 4 tab, PO, daily, Dispense Quantity: 120 tab, Refills: 5, Entered: 11/20/18 11:39:00 EDT, Dispense as Written, [facility] [id number] Start Date: 11/20/18 Stop Date: 11/22/18 Status: Discontinued Oxtellar XR 600 mg oral tablet, extended release Dose: 1,200 mg, Dose Amount: 2 tab, PO, daily, Dispense Quantity: 60 tab, Refills: 5, Entered: 11/26/18 12:07:00 EDT, [facility] [id number] Start Date: 11/26/18 Stop Date: 03/14/19 Status: Discontinued Oxtellar XR 600 mg oral tablet, extended release Dose: 1,200 mg, Dose Amount: 2 tab, PO, QPM, Dispense Quantity: 60 tab, Refills: 5, Entered: 08/05/19 12:36:00 EST, [facility] #[id number] Start Date: 08/05/19 Status: Ordered Oxtellar XR 600 mg oral tablet, extended release Dose: 1,200 mg, Dose Amount: 2 tab, PO, daily, Dispense Quantity: 60 tab, Refills: 5, Entered: 03/14/19 11:10:44 EDT, [facility] #[id number] Start Date: 03/14/19 Stop Date: 08/05/19 Status: Discontinued Oxtellar XR 600 mg oral tablet, extended release Dose: 1,200 mg, Dose Amount: 2 tab, PO, daily, Special Instructions: take at night, Dispense Quantity: 60 tab, Refills: 5, Entered: 07/26/18 11:25:48 [facility], [facility] [id number] Start Date: 07/26/18 Stop Date: 11/01/18 Status: Discontinued Oxtellar XR 600 mg oral tablet, extended release Dose: 1,200 mg, Dose Amount: 2 tab, PO, daily, Dispense Quantity: 60 tab, Refills: 0, Entered: 11/22/18 16:46:00 EDT, [facility] [id number] Start Date: 11/22/18 Stop Date: 11/22/18 Status: Discontinued Symbicort 80 mcg-4.5 mcg/inh inhalation aerosol INH, PRN Respiratory Distress, Entered: 05/20/19 15:28:18 EST Start Date: 05/20/19 Status: Ordered Trileptal 300 mg/5 mL (60 mg/mL) oral suspension Dose: 360 mg, Dose Amount: 6 mL, PO, BID, Dispense Quantity: 360 mL, Refills: 5, Entered: 10/16/14 15:23:27 EDT, Therapy Maintenance, [facility] [id number] Start Date: 10/16/14 Stop Date: 10/16/14 Status: [...] cap, Refills: 5, Entered: 11/01/18 11:35:18 EDT, [facility] [id number] Start Date: 11/01/18 Stop Date: 03/14/19 Status: Discontinued Trokendi XR 25 mg oral capsule, extended release Dose: 100 mg, Dose Amount: 4 cap, PO, daily, Dispense Quantity: 120 cap, Refills: 5, Entered: 03/14/19 11:10:46 EDT, [facility] #[id number] Start Date: 03/14/19 Stop Date: 09/10/19 Status: Ordered Vitamin D3 1000 intl units/10 mL oral liquid Dose: 1,000 unit, Dose Amount: 10 mL, PO, daily, Dispense Quantity: 300 mL, Refills: 5, Entered: 10/16/14 15:23:29 EDT, Therapy Maintenance, [facility] [id number] Start Date: 10/16/14 Stop Date: 10/23/14 Status: Discontinued Vitamin D3 1000 intl units/10 mL oral liquid Dose: 2,000 unit, Dose Amount: 20 mL, PO, daily, Dispense Quantity: 600 mL, Refills: 5, Entered: 10/23/14 14:12:29 EDT, Therapy Maintenance, [facility] [id number] Start Date: 10/23/14 Stop Date: 05/10/15 Status: [...] cap, Refills: 5, Entered: 05/10/15 11:55:33 EST, [facility] [id number] Start Date: 05/10/15 Stop Date: 10/25/15 Status: Discontinued Vitamin D3 2000 intl units oral capsule Dose: 4,000 unit, Dose Amount: 2 cap, PO, daily, Dispense Quantity: 120 cap, Refills: 5, Entered: 11/01/18 11:00:42 EDT, [facility] [id number] Start Date: 11/01/18 Stop Date: 03/14/19 Status: Discontinued Vitamin D3 2000 intl units oral capsule Dose: 2,000 unit, Dose Amount: 1 cap, PO, daily, Dispense Quantity: 60 cap, Refills: 5, Entered: 10/09/16 13:21:06 EDT, [facility] [id number] Start Date: 10/09/16 Stop Date: 05/15/18 Status: Discontinued Vitamin D3 2000 intl units oral capsule Dose: 4,000 unit, Dose Amount: 2 cap, PO, daily, Dispense Quantity: 120 cap, Refills: 5, Entered: 03/14/19 11:11:01 EDT, [facility] #[id number] Start Date: 03/14/19 Status: Ordered Vitamin D3 1999 intl units oral capsule Dose: 2,000 unit, Dose Amount: 1 cap, PO, daily, Dispense Quantity: 60 cap, Refills: 5, Entered: 01/13/16 12:11:00 EDT, [facility] [id number] Start Date: 01/13/16 Stop Date: 10/09/16 Status: Discontinued Vitamin D3 2000 intl units oral capsule Dose: 4,000 unit, Dose Amount: 2 cap, PO, daily, Dispense Quantity: 120 cap, Refills: 5, Entered: 07/26/18 11:26:13 EST, [facility] [id number] Start Date: 07/26/18 Stop Date: 11/01/18 Status: Discontinued Vitamin D3 2000 intl units oral capsule Dose: 2,000 unit, Dose Amount: 1 cap, PO, BID, Dispense Quantity: 60 cap, Refills: 5, Entered: 10/25/15 13:28:00 EDT, [facility] [id number] Start Date: 10/25/15 Stop Date: 01/13/16 Status: Discontinued Vitamin D3 2000 intl units oral capsule Dose: 2,000 unit, Dose Amount: 1 cap, PO, daily, Dispense Quantity: 60 cap, Refills: 5, Entered: 05/15/18 11:15:55 EST, [facility] [id number] Start Date: 05/15/18 Stop Date: 06/10/18 Status: Discontinued Vitamin D3 2000 intl units oral capsule Dose: 4,000 unit, Dose Amount: 2 cap, PO, daily, Dispense Quantity: 120 cap, Refills: 5, Entered: 06/10/18 16:03:00 [facility] [id number] Start Date: 06/10/18 Stop Date: 07/26/18 Status: [...]
== END 2023-03-29 13:38 | disposition home or self-care (01) ==
LOC: HO.HBS 13:29
PROVIDERS: PCP Pediatrics; Visit Provider Dietitian, Registered
DX: E66.01 Morbid (severe) obesity due to excess calories (principal)

== ENCOUNTER → 2023-03-29 13:29 | Outpatient (BNVA) | payer OTHER, SELFPAY | PROVIDERS: PCP Pediatrics; Visit Provider Dietitian, Registered | DX: E66.01 Morbid (severe) obesity due to excess calories (principal); Z71.3 Dietary counseling and surveillance | CPT/HCPCS: 97803 ==

== ENCOUNTER 2023-04-18 14:26 | Outpatient (AMB) | payer OTHER, SELFPAY ==
--- NOTE | 2023-04-18 14:30 | A.OFFVIS_ITS ---
Intake VS Expanded 04/18/23 14:34 BP 133/84 Blood Pressure Location Rt brachial Blood Pressure Position Sitting Pulse 120 H Pulse Source Pulse Oximeter Temp 97.5 F Temperature Source Temporal Artery Scan Pulse Oximetry 97 Oxygen Delivery Method Room Air Height 5 ft 5 in Weight 293 lb 3.2 oz BMI 48.8 Body Fat % 46.5 Body Fat Mass 136.2 Fat Free Mass 156.8 Visceral Fat Rating 13.0 Body Water % 38.5 Body Water Mass 112.8 Muscle Mass/Score 148.8 Basal Metabolic Rate/Score 2,310 Intake Visit Reasons: (OV) F/U SWL Stock Controller Required: No Allergies grass pollen Allergy (Mild, Verified 04/18/23 14:33) throat latex [LATEX] Allergy (Unknown, Verified 04/18/23 14:33) RASH Medication List - Last Reconciled 04/18/23 by TEE Fritz cholecalciferol (vitamin D3) 100 mcg PO DAILY cyanocobalamin (vitamin B-12) 250 mcg PO DAILY oxcarbazepine ER (Oxtellar XR) 1,200 mg PO QPM oxcarbazepine ER (Oxtellar XR) 300 mg PO DAILY thiamine HCl (vitamin B1) 100 mg PO DAILY 90 days HPI HPI Comments History of Present Illness Details The patient is a pleasant 17 year old female who returns to the clinic for pre-operative surgical weight loss management. They were last seen in the office on 02/26/23, recorded weight at that time was 301.8 pounds, with a BMI of 50.2. Today's weight is 293.2 pounds and BMI is 48.8. There has been a weight loss of 8.6 pounds since initiating the surgical weight loss program on 02/26/23 with a total body weight loss of 2.6 %. Pre op work up completed as follows: SWL classes:? BH appts: cleared 04/06/23? ? RD appts: needs f/u Labs: 03/09/23-low B1 H. pylori: not yet done CXR: 03/09/23-nad EK03/09/23-normal ABD U/S: not yet done UGI: not yet done The patient reports she was doing well at first but then stopped the following the meal plan about 3-4 weeks ago. Not following the meal plan. She states she would like to try again Current recommended meal plan includes: 2 Premier Protein shakes ([employer], [employer], [facility]), First shake (2 scoops in 8-10 oz low fat unsweetened almond milk or water) at 9am-11am 1 protein bar (Fulfil bars at [employer], [facility], or [employer]) at 12pm-2pm. Another shake with 1 scoop in 8 oz unsweetened almond milk at 2pm-4pm. Dinner at 4pm (10 forks of protein and 10 forks of salad/vegetables). Meal to include lean meat (beef, fish, pork, turkey, chicken), cooked vegetables or a salad with olive oil and/or fruits (berries, pears, apples, kiwi). Avoid salt, breads, potatoes, rice, pasta, desserts. Another bar at 7pm-9pm. Drinking 32-64 oz of water Current exercise plan includes: none PFSH Medical History Epilepsy Surgical History Hx of tonsillectomy Family History Mother Diabetes Father No problems noted. Brother No problems noted. Sister No problems noted. Social History Alcohol intake: never Patient Tobacco Use Status: Never used Tobacco Physical Exam Vital Signs: Last Vital Signs Temp 97.5 F 04/18/23 14:34 Pulse 120 H 04/18/23 14:34 BP 133/84 04/18/23 14:34 Pulse Ox 97 04/18/23 14:34 Oxygen Delivery Method Room Air 04/18/23 14:34 BMI result Body Mass Index 48.8 Const General: healthy appearing and no acute distress Resp Effort & Inspection: normal respiratory effort Auscultation: clear to auscultation bilaterally Cardio Rate: regular rate Rhythm: regular rhythm GI Auscultation: normal bowel sounds Extrem General: Yes normal to inspection Assessment & Plan Assessment & Plan (1) Morbid obesity: Code(s): E66.01 - Morbid (severe) obesity due to excess calories Plan: Discussed giving her another opportunity to be successful. She states that she wants to participate in the program. She will continue to follow the recommended meal plan, obtain a body composition scale, text me weekly, join a gym and return for an appointment in 1 month. Should she be unable to commit, she will withdraw from the program. Coding Level of Care Code Est Pt Level 3 (54511) Diagnoses Morbid obesity E66.01
[2023-04-18 14:34] VITALS: BP 133/84; PULSE 120; TEMP 36.4; O2SAT 97; BMI 48.8
== END 2023-04-18 15:01 | disposition home or self-care (01) ==
PROVIDERS: PCP Pediatrics; Visit Provider Physician Assistant Surgical
DX: E66.01 Morbid (severe) obesity due to excess calories (principal); Z68.54 Body mass index [BMI] pediatric, 95th percentile for age to less than 120% of the 95th percentile for age
CPT/HCPCS: 99213

== ENCOUNTER → 2023-04-18 14:26 | Outpatient (BNVA) | payer OTHER, SELFPAY | PROVIDERS: PCP Pediatrics; Visit Provider Physician Assistant Surgical | DX: E66.01 Morbid (severe) obesity due to excess calories (principal); Z68.42 Body mass index [BMI] 45.0-49.9, adult | CPT/HCPCS: 99212 ==

== ENCOUNTER 2023-04-23 08:57 | Outpatient (REF) | payer OTHER, SELFPAY ==
--- NOTE | ~2023-04-23 | US_ITS ---
EXAMINATION: US COMPLETE ABDOMEN WITH LIVER ELASTOGRAPHY CLINICAL INFORMATION: Morbid obesity. COMPARISON: Abdominal ultrasound dated 11/25/2021. TECHNIQUE: Real-time imaging of the abdominal viscera. Noninvasive ultrasound liver fibrosis assessment is performed using Jana ElastPQ point quantification shear wave elastography (2D-SWE) with a C5-2 MHz transducer. Multiple elastography samples are obtained. FINDINGS: PANCREAS: Limited. The visualized pancreatic head and proximal body are normal in appearance. The remainder of the pancreas is obscured from visualization by the overlying bowel gas. ABDOMINAL AORTA: The proximal, middle, and distal aortic segments are normal in caliber. INFERIOR VENA CAVA: Visualized portions are normal. LIVER: The liver demonstrates normal size, contour and increased echogenicity. No focal lesion or intrahepatic biliary duct dilatation. The right lobe measures 15.1 cm in length. The left lobe measures 11.7 cm in length. Portal flow is towards the liver (hepatopetal). Shear wave liver elastography median stiffness is 1.94 m/s (reference: normal median stiffness is 1.3 m/s or less). IQR/median stiffness to assess sampling precision is 0.18 (reference: good quality data set is IQR/median stiffness of 0.15 or less). GALLBLADDER: Normal. The gallbladder is physiologically distended without evidence of stones, sludge, polyps, wall thickening or pericholecystic fluid. COMMON BILE DUCT: Normal in caliber measuring 0.3 cm in diameter. RIGHT KIDNEY: Normal. No hydronephrosis. No renal calculi or focal parenchymal lesions. The kidney measures 9.9 cm in maximum dimension. LEFT KIDNEY: Normal. No hydronephrosis. No renal calculi or focal parenchymal lesions. The kidney measures 11.5 cm in maximum dimension. SPLEEN: Normal. The spleen measures 11.8 cm in maximum dimension. FREE FLUID: None. US/US abdomen comp w elastography IMPRESSION: 1. There is generalized increase in hepatic echotexture, consistent with fatty infiltration or hepatocellular disease. Please correlate clinically. No focal hepatic mass or intrahepatic biliary dilatation is seen. 2. Liver elastography: Although measurements are suggestive of compensated advanced chronic liver disease, there is statistical variability of the sampling which decreases accuracy. When compared with prior exam, there is a statistically significant increase in liver stiffness (increase at least 10%). 3. Technically limited ultrasound examination the pancreas. REFERENCE: Society of Radiologists in Ultrasound Liver Stiffness Thresholds (2020): LIVER STIFFNESS THRESHOLDS: *Liver Stiffness equal or less than 1.3 m/s: High probability of being normal. *Liver Stiffness less than 1.7 m/s: In the absence of other known clinical signs, rules out compensated advanced chronic liver disease. *Liver Stiffness 1.7-2.1 m/s: Suggestive of compensated advanced chronic liver disease but need further test for confirmation. *Liver Stiffness over 2.1 m/s: Rules in compensated advanced chronic liver disease. *Liver Stiffness over 2.4 m/s: Suggestive of clinically significant portal hypertension. QUALITY OF DATA SET: *IQR/Median value equal or less than 0.15 implies a quality data set. *IQR/Median value over 0.15 implies a poor quality data set. SIGNIFICANT CHANGE FROM PRIOR EXAM: Significant change if liver stiffness measurement is 10% or greater from prior exam. OTHER CONSIDERATIONS: The stage of liver fibrosis may be overestimated in the setting of acute hepatitis, liver inflammation, elevated liver function tests, hepatic vascular congestion, obstructive cholestasis, non-fasting state, and infiltrative diseases such as amyloidosis and lymphoma. In some patients with NAFLD, the liver stiffness thresholds for compensated advanced chronic liver disease may be lower. In causes other than viral hepatitis and NAFLD, liver stiffness thresholds are not well established.
== END 2023-04-23 08:58 | disposition home or self-care (01) ==
LOC: HO.US 08:57
PROVIDERS: PCP Pediatrics; Visit Provider Physician Assistant Surgical
DX: E66.01 Morbid (severe) obesity due to excess calories (principal)
CPT/HCPCS: 76705; 76981

== ENCOUNTER 2023-04-26 13:04 | Outpatient (AMB) | payer OTHER, SELFPAY ==
--- NOTE | 2023-04-26 15:55 | MHC.WMTHER ---
Intake Intake Visit Reasons: VIDEO Intake Allergies grass pollen Allergy (Mild, Verified 04/18/23 14:33) throat latex [LATEX] Allergy (Unknown, Verified 04/18/23 14:33) [facility] Medical History Epilepsy Surgical History Hx of tonsillectomy Family History Mother Diabetes Father No problems noted. Brother No problems noted. Sister No problems noted. Social History Alcohol intake: never Patient Tobacco Use Status: Never used Tobacco Behavioral Health Assessment Weight Management Therapy Therapy Notes Details Patient has re-established with [facility]. She stated that she was doing really well for 2 weeks and then got off the diet once which led to two weeks off of it). We discussed alternatives to when she eats off the meals, what causes it, getting away from the extremes she goes between and having a plan b for when her family goes out to eat. (Per previous intake) Pt reported that she is struggling in the program and has not been able to loose any weight. She reported that she has days in which she eats whatever she wants. She stated that she worries about her future health and also does not like the way she looks. Pt reported that she cannot go on rides or buy the clothes she wants . She reported about two years she was in therapy at [facility] due to a traumatic event that happened in her life and struggling to find healing and to get past it. She reported today that she is going back for the same reasons, reported feeling angry. Patient denied any history of self harming behaviors, suicide attempts, hospital admissions, drug or alcohol problems. Presenting Concerns Referral Source provider Reason for referral weight loss surgery evaluation Precipitating Event obesity Living Situation Current Living Situation Rent At risk of losing current housing? No Satisfied with current living situation? Yes Comments Pt lives with her parents and two siblings. Food/Weight/Diet Expectations of change weight loss History/Relationship with food Pt stated chips, rice, cookies, fast food, are typically the foods she eats that are not the healthiest. History/Relationship with weight Pt reported that she started gaining more weight around age [age]. She started being homeschooled in 8th grade and reported that she started eating more. History/Relationship with dieting Keto Binge Eating Do you frequently eat large amounts of food in short periods of time, not feeling physically hungry? Yes Do you feel out of control when you eat a large amount of food in a short period of time? No Do you eat large amounts of food rapidly and typically alone? Yes Night Eating Do you wake up at least once during the night to eat? No If you wake up in the night, do you find that it is necessary to eat something in order to fall back asleep? No Do you have little or no appetite in the morning and feel very hungry in the evening, often overeating between dinner and when you go to bed? No Social History Family history and relationship Pt was born in [place] and has been here since she was 8 months old. She is single with no children. Parental/Familial warehouse distribution manager obligations no issues Developmental history and status none reported Social support mom, sister (older). Community support some support from alevism community Congregation/Spirituality Bahai Cultural/Ethnic information Legal Involvement and History Current or historical involvement with the legal system? none Education Highest grade completed high school diploma Preferred learning style Auditory, Verbal, Written, Learn by doing and Visual Currently enrolled in educational program? Yes Interested in further educational program? Yes Educational Interests/Skills Pt is hoping to try college again next fall. Employment Employment Status Unemployed Wants help to find employment? No Meaningful activities Pt reported that she exercises or watches TV on her free time. Financial Situation Describe current financial situation Occasional struggle Financial assistance? None Service Service? No Mental Health and Addiction Treatment Current/Past substance abuse? No Current/Past addictive behavior concerns? No Pain Screening Current pain? No Pain in the last few months? No Medications Is the patient compliant with medications? Yes Does the patient have Rosa Guardian in place? Not applicable Does the patient use complimentary health approaches? No Trauma/Abuse History History of trauma? Yes Assessment & Plan Assessment & Plan (1) Dysthymia: Code(s): F34.1 - Dysthymic disorder (2) Morbid obesity: Code(s): E66.01 - Morbid (severe) obesity due to excess calories Plan Patient has been struggling to be consistent for more than 2 weeks at a time. She is currently in therapy and will be seen again. Telehealth Telehealth Location of provider rendering services: other Location of patient: address on file Patient Identification confirmed using: Name, : Yes Telehealth method: video Patient verbally consented to treatment: Yes Patient verbally consented to billing insurance company: Yes Patient informed of any privacy concerns related to visit: Yes Minutes spent on Phone/Video with Pt.: 45 Coding Level of Care Code Tele Psytx 45 mins (67735) Diagnoses Dysthymia F34.1 Morbid obesity E66.01 Time Spent (min) 45
== END 2023-04-26 15:55 | disposition home or self-care (01) ==
LOC: HO.HBST 13:05
PROVIDERS: PCP Pediatrics; Visit Provider Counselor Mental Health
DX: F34.1 Dysthymic disorder (principal); E66.01 Morbid (severe) obesity due to excess calories
CPT/HCPCS: 90834

== ENCOUNTER 2023-06-11 13:51 | Outpatient (AMB) | payer OTHER, SELFPAY ==
--- NOTE | 2023-06-04 12:56 | A.OFFVIS_ITS ---
Intake Intake Visit Reasons: VIDEO F/U SWL Allergies grass pollen Allergy (Mild, Verified 04/18/23 14:33) throat latex [LATEX] Allergy (Unknown, Verified 04/18/23 14:33) RASH HPI HPI Comments History of Present Illness Details The patient is a pleasant 17 year old female who returns to the clinic for pre-operative surgical weight loss management. They were last seen in the office on 04/18/23, recorded weight at that time was 293.2 pounds, with a BMI of 48.8. Today's weight is [] pounds and BMI is []. There has been a weight loss of [] pounds since initiating the surgical weight loss program on [] with a total body weight loss of [] %. Pre op work up completed as follows: SWL classes:? BH appts: cleared 04/06/23? ? RD appts: needs f/u Labs: 03/09/23-low B1 H. pylori: not yet done CXR: 03/09/23-nad EK03/09/23-normal ABD U/S: not yet done UGI: not yet done The patient reports she was doing well at first but then stopped the following the meal plan about 3-4 weeks ago. Not following the meal plan. She states she would like to try again Current recommended meal plan includes: 2 Premier Protein shakes (Target, [employer], [facility]), First shake (2 scoops in 8-10 oz low fat unsweetened almond milk or water) at 9am-11am 1 protein bar (Fulfil bars at Target, CV S, or Big Y) at 12pm-2pm.Another shake with 1 scoop in 8 oz unsweetened almond milk at 2pm-4pm. Dinner at 4pm (10 forks of protein and 10 forks of salad/vegetables). Meal to include lean meat (beef, fish, pork, turkey, chicken), cooked vegetables or a salad with olive oil and/or fruits (berries, pears, apples, kiwi). Avoid salt, breads, potatoes, rice, pasta, desserts. Another bar at 7pm-9pm. Drinking 32-64 oz of water Current exercise plan includes: none PFSH Medical History Epilepsy Surgical History Hx of tonsillectomy Family History Mother Diabetes Father No problems noted. Brother No problems noted. Sister No problems noted. Social History Alcohol intake: never Patient Tobacco Use Status: Never used Tobacco Coding
--- NOTE | 2023-06-11 13:05 | MHC.OFFVISWM ---
Intake VS Expanded 06/11/23 13:06 Height 5 ft 5 in Weight 272 lb BMI 45.3 Intake Visit Reasons: VIDEO F/U SWL Body Press Operator Required: No Allergies grass pollen Allergy (Mild, Verified 04/18/23 14:33) throat latex [LATEX] Allergy (Unknown, Verified 04/18/23 14:33) RASH Medication List - Last Reconciled 06/11/23 by TEE Fritz cholecalciferol (vitamin D3) 100 mcg PO DAILY cyanocobalamin (vitamin B-12) 250 mcg PO DAILY oxcarbazepine ER (Oxtellar XR) 1,200 mg PO QPM oxcarbazepine ER (Oxtellar XR) 300 mg PO DAILY thiamine HCl (vitamin B1) 100 mg PO DAILY 90 days HPI HPI Comments History of Present Illness Details The patient is a pleasant 17 year old female who returns to the clinic for pre-operative surgical weight loss management. They were last seen in the office on 04/18/23, recorded weight at that time was 293.2 pounds, with a BMI of 48.8. Today's weight is 272 pounds and BMI is 45.3. There has been a weight loss of 29.8 pounds since initiating the surgical weight loss program on 02/26/23 with a total body weight loss of 9.8 %. Pre op work up completed as follows: SWL classes:? BH appts: cleared 04/06/23? ? RD appts: needs f/u Labs: 03/09/23-low B1 H. pylori: not yet done CXR: 03/09/23-nad EK03/09/23-normal ABD U/S: 03/29/23-normal UGI: 06/23/23-fatty liver The patient reports she is doing ok. She is following the meal plan except using 1 scoop of powder in the morning. She had a seiizure on Sunday when she was sleeping. She awoke w tongue injury on the side. She has no memory of the event. Her throat was also hurting. She reports she is taking her meds. She is going to call her neurologist, Dr Wallace, at [facility]. Current recommended meal plan includes: 2 Premier Protein shakes (Target, Big Y, [facility]), First shake (2 scoops in 8-10 oz low fat unsweetened almond milk or water) at 9am-11am 1 protein bar (Fulfil bars at Target, CVS, or Big Y) at 12pm-2pm. Another shake with 1 scoop in 8 oz unsweetened almond milk at 2pm-4pm. Dinner at 4pm (10 forks of protein and 10 forks of salad/vegetables). Another bar at 7pm-9pm. Drinking 48-64 oz of water Current exercise plan includes: running and walking outside. 2 x per week. nothing on the other days. [facility] Medical History Epilepsy Surgical History Hx of tonsillectomy Family History Mother Diabetes Father No problems noted. Brother No problems noted. Sister No problems noted. Social History Alcohol intake: never Patient Tobacco Use Status: Never used Tobacco Assessment & Plan Assessment & Plan (1) Morbid obesity: Code(s): E66.01 - Morbid (severe) obesity due to excess calories Plan: change meal plan slightly: 2 Premier Protein shakes (Target, Big Y, [facility]S), First shake (1 scoop in 8 oz low fat unsweetened almond milk or water) at 9am-11am 1 protein bar (Fulfil bars at Target, CVS, or Big Y) at 12pm-2pm. Another shake with 1 scoop in 8 oz unsweetened almond milk at 2pm-4pm. Dinner at 4pm (10 forks of protein and 10 forks of salad/vegetables). Another bar at 7pm-9pm. Needs to get Renpho body composition scale. Needs to increase exercise and track calories which we discussed. Will have her follow-up with KAPIL Landaverde and then return to the office to clarify her weight and do H pylori test. (2) Epilepsy: Code(s): G40.909 - Epilepsy, unspecified, not intractable, without status epilepticus Plan: She was encouraged to call her neurologist at [facility] in [place] for further recommendations. She states that she is not driving and knows that she cannot for at least 6 months or until cleared by her neurologist Telehealth Telehealth Location of provider rendering services: practice address Location of patient: address on file Patient Identification confirmed using: Name, : Yes Telehealth method: voice only Patient verbally consented to treatment: Yes Patient verbally consented to billing insurance company: Yes Patient informed of any privacy concerns related to visit: Yes Minutes spent on Phone/Video with Pt.: 15 Coding Level of Care Code Tele Est Pt Level 3 (09045) Diagnoses Morbid obesity E66.01 Epilepsy G40.909 Time Spent (min) 20
[2023-06-11 13:06] VITALS: BMI 45.3
--- OUTSIDE RECORDS SUMMARY | 2023-06-11 13:54 | XMS_ITS | Continuity of Care Document ---
Author Name Unknown Organization [facility] Address [address] [place] [address]- Care Team Providers Care Dimensional Inspector Name Role Phone Jason SOLORZANO, Karla Tai Primary Care Physician Encounter [facility] Date(s): 03/29/23 - 04/28/23 [facility] [address] [place] [id number] Allergies, Adverse Reactions, Alerts Substance Reaction Severity [...] By Mouth, 2 times a day, 3 qA=840ub, 0 Refills, Maintenance, Suspension Start Date: 06/23/13 Status: Ordered Oxtellar XR By Mouth, Daily, 0 Refills, Maintenance, 03/21/21 12:53:00 EDT, Partial fill upon patient request if the prescription is for a schedule II opioid drug. Start Date: 03/21/21 Status: Ordered ProAir HFA 2 puffs, Inhalation, [...] Date: 12/18/14 Status: Ordered Problem List Condition Confirmation Course Effective Dates Status H ealth Status Informant Abdominal Pain Confirmed Active Asthma Confirmed Active Bloody diarrhea Confirmed Active Developmental delay Confirmed Active Migraines Confirmed Active Seizure disorder 1 Confirmed Active 1Nocturnal seizures with repetitive centro-temporal spikes on EEG Patient Care team information Care Team Personnel Name: Karla Gomez MD Position: [facility] Physician - Pediatrics Member Role: PCP Address: Address: [address] [place] [address] [facility] [place] [address]- Care Team Related Persons Name: NOEMY SAINZ Address: home [address] [place] [address] Name: JEAN CLAUDE SAINZ Address: home [address] [place] [address]
== END 2023-06-11 14:00 | disposition home or self-care (01) ==
LOC: HO.HBS 13:52
PROVIDERS: PCP Pediatrics; Visit Provider Physician Assistant Surgical
DX: E66.01 Morbid (severe) obesity due to excess calories (principal); G40.909 Epilepsy, unspecified, not intractable, without status epilepticus
CPT/HCPCS: 99213

== ENCOUNTER 2023-11-28 13:30 | Outpatient (AMB) | payer OTHER, SELFPAY ==
--- NOTE | 2023-11-28 11:02 | A.OFFVIS_ITS ---
Intake Visit Reasons: (tv) SWL Allergies grass pollen Allergy (Mild, Verified 04/18/23 14:33) throat latex [LATEX] Allergy (Unknown, Verified 04/18/23 14:33) RASH HPI Comments Details: The patient is a pleasant 18 year old female who returns to the clinic for pre- operative surgical weight loss management. They were last seen in the office on 06/11/23, recorded weight at that time was 272 pounds, with a BMI of 45.3. Today's weight is 301.6 pounds and BMI is 50.2. There has been a weight loss of 0.2 pounds since initiating the surgical weight loss program on 02/26/23. She states that she was in school for the last 5 months. Pre op work up completed as follows: SWL classes:? BH appts: cleared 04/06/23? ? RD appts: needs f/u Labs: 03/09/23-low B1 H. pylori: not yet done CXR: 03/09/23-nad EK03/09/23-normal ABD U/S: 03/29/23-normal UGI: 06/23/23-fatty liver The patient reports she has not been following a meal plan or exercise plan. previous recommended meal plan includes: 2 Premier Protein shakes (Target, Big Y, [facility]S), First shake (1 scoop in 8 oz low fat unsweetened almond milk or water) at 9am- 11am 1 protein bar (Fulfil bars at Target, CVS, or Big Y) at 12pm-2pm. Another shake with 1 scoop in 8 oz unsweetened almond milk at 2pm-4pm. Dinner at 4pm (10 forks of protein and 10 forks of salad/vegetables). Another bar at 7pm-9pm. Drinking 48-64 oz of water Current exercise plan includes: walking outside. 2 x per week. nothing on the other days. [facility] Medical History Epilepsy Surgical History Hx of tonsillectomy Family History Mother Diabetes Father No problems noted. Brother No problems noted. Sister No problems noted. Social History Alcohol intake: never Patient Tobacco Use Status: Never used Tobacco Telehealth Telehealth Telehealth Platform: Telephone Location of provider rendering services: practice address Location of patient: address on file Patient Identification confirmed using: Name, : Yes Telehealth method: voice only Patient verbally consented to treatment: Yes Patient verbally consented to billing insurance company: Yes Patient informed of any privacy concerns related to visit: Yes Minutes spent on Phone/Video with Pt.: 15 Assessment & Plan Assessment & Plan (1) Morbid obesity: Code(s): E66.01 - Morbid (severe) obesity due to excess calories Category: Medical Plan: Patient has been going to school over the last 5 months. She has not had any follow-up. We discussed the need of consistency including meal plan and exercise plan. She will continue recommended meal plan as listed above and discussed the need for consistent exercise including cardiovascular activities such as treadmill, elliptical, stationary bike, rowing machine with a goal of burning 300 calories per day. She may continue to walk outside if she wishes tracking her calories with the Box Jump sherif or similar. We will have her return to the office for a phone follow-up appointment in approximately 6 weeks with the understanding that she is either able to commit to the program or not. She is in agreement with this plan.
--- OUTSIDE RECORDS SUMMARY | 2023-11-28 14:27 | XMS_ITS | Summary of Care ---
Author Organization [facility] Address [address] [place] [address]- Care Team Providers Care Mushroom Grower Name Role Phone KELSEY VARGAS MD Primary Care Physicia n Encounter [facility] [id number] Date(s): 07/11/23 - 07/11/[address] [address]- Discharge Disposition: Discharge Attending Physician: LEONID MARI MD Referring Physician: LEONID MARI MD Allergies, Adverse Reactions, Alerts Substance Reaction Severity Status Latex Allergy Active Problem List Condition Confirmation Course Effective Dates [...] Personnel Name: KELSEY VARGAS MD Address: Address: [address] [place] [address]-
--- OUTSIDE RECORDS SUMMARY | 2023-11-28 14:27 | XMS_ITS | Summary of Care ---
Author Organization [facility] Address [address] [place] [address]- Care Team Providers Care Heel Cementer Machine Name Role Phone SAM SOLORZANO, KELSEY Sheikh Primary Care Physicia n Encounter [facility] [id number] Date(s): 07/11/23 - 07/11/23 [facility], [place] [id number]- Discharge Disposition: Discharge Attending Physician: LEONID MARI MD Referring Physician: LEONID MARI MD Allergies, Adverse Reactions, Alerts Substance Reaction Severity Status Latex Allergy Active Medications KlonoPIN 1 mg oral tablet See Instructions, PRN use for clusters, Special Instructions: clonazepam 1mg for clusters of seizures (such as more than 3 in an hour), Dispense Quantity: 20 tab, Refills: 2, Entered: 07/11/23 12:22:00 EST, [id number] Start Date: 07/11/23 Status: Ordered naproxen sodium 550 mg oral tablet Dose: 550 mg, Dose Amount: 1 tab, PO, BID, PRN Pain, Dispense Quantity: 30 tab, Refills: 1, Entered: 07/11/23 12:22:00 EST, [id number] Start Date: 07/11/23 Status: Ordered Oxtellar XR 300 mg oral tablet, extended release Dose: 300 mg, Dose Amount: 1 tab, PO, daily, Special Instructions: also has 600 mg tabs for total daily dose of 300mg am/ 1200mg pm, Dispense Quantity: 90 tab, Refills: 3, Entered: 07/11/23 12:22:00 EST, [id number] Start Date: 07/11/23 Stop Date: 07/05/24 Status: Ordered Oxtellar XR 600 mg oral tablet, extended release Dose: 1,200 mg, Dose Amount: 2 tab, PO, QPM, Special Instructions: also takes 300mg tabs total doseof 300mg in am / 1200mg @ HS, will need to give 600mg one extra dose on 11/03/2022., Dispense Quantity: 181 tab, Refills: 3, Entered: 07/11/23 12:22:00... Start Date: 07/11/23 Stop Date: 07/05/24 Status: Ordered Valtoco 20 mg Dose nasal spray Dose: 20 mg, Nasal, 1time, PRN Seizure Activity, Special Instructions: Requires two 10 mg devices. Give 10 mg (one spray) as a single dose in one nostril and immediately follow with 10 mg (one spray)from the second device in the other nostril; do no... Start Date: 07/11/23 Status: Ordered Vitamin D3 50 mcg (2000 intl units) oral capsule Dose: 4,000 unit, Dose Amount: 2 cap, PO, daily, Dispense Quantity: 180 cap, Refills: 3, Entered: 07/11/23 12:23:00 EST, [id number] Start Date: 07/11/23 Stop Date: 07/05/24 Status: Ordered zonisamide 50 mg oral capsule Dose: 100 mg, Dose Amount: 2 cap, PO, daily, Dispense Quantity: 60 cap, Refills: 5, Entered: 07/11/23 12:22:00 EST, [id number] Start Date: 07/11/23 Stop Date: 01/07/24 Status: Ordered Problem List Condition Confirmation Course [...] Personnel Name: KELSEY VARGAS MD Address: Address: [address] [place] [address]
== END 2023-11-28 14:00 | disposition home or self-care (01) ==
LOC: HO.HBS 14:25
PROVIDERS: PCP Pediatrics; Visit Provider Physician Assistant Surgical
DX: E66.01 Morbid (severe) obesity due to excess calories (principal)
CPT/HCPCS: 99213

== ENCOUNTER 2023-12-04 10:05 | Outpatient (AMB) | payer OTHER, SELFPAY ==
[2023-12-04 10:58] VITALS: BP 132/80; PULSE 92; TEMP 37.2; O2SAT 98; BMI 50.9
--- NOTE | 2023-12-04 10:58 | AM.OFFWIN_ITS ---
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 She denies any nausea, vomiting, diarrhea, fevers, chest pain, shortness of breath. She also denies any history of allergies. She states she has been taking tea and Motrin both of which are not helping her sore throat. She states nobody at home is sick. [facility] Medical History Epilepsy Surgical History Hx of tonsillectomy Family History Mother Diabetes Father No problems noted. Brother No problems noted. Sister No problems noted. Social History Alcohol intake: never Patient Tobacco Use Status: Never used Tobacco Review of Systems Const All systems reviewed & are unremarkable except as noted in HPI and below Physical Exam Vital Signs: Last Vital Signs Temp 99.0 F 12/04/23 10:58 Pulse 92 12/04/23 10:58 BP 132/80 12/04/23 10:58 Pulse Ox 98 12/04/23 10:58 Oxygen Delivery Method Room Air 12/04/23 10:58 BMI result Body Mass Index 50.9 Const General: cooperative, healthy appearing, comfortable and no acute distress Orientation/consciousness: patient oriented x3 Limitations: no limitations HEENT Head: Yes normal to inspection Ears: external ears normal and TM's normal bilaterally General nose exam: Normal external nose present, Normal nares present and No nasal discharge present Face and sinus: Yes normal facial exam, Yes sinuses nontender and Yes face symmetric Mouth: Normal oral and palatal mucosa present, lip normal, tongue normal and moist mucous membranes Throat: Yes posterior oropharynx normal and Yes uvula midline Eyes General: appearance normal, both eyes and all related structures Neck Neck: Yes normal visual inspection Resp Effort & Inspection: normal respiratory effort, able to speak in complete sentences, Actively coughing, no respiratory distress, not tachypneic, no tripod positioning and no use of accessory muscles Auscultation: clear to auscultation bilaterally Cardio Rate: regular rate Rhythm: regular rhythm Heart sounds: normal S1 and S2 Skin General skin exam: no rashes or lesions noted Neuro General: patient oriented x3 Extrem General: Yes normal to inspection and Yes no clubbing, cyanosis or edema Assessment & Plan Assessment & Plan (1) URI (upper respiratory infection): Code(s): J06.9 - Acute upper respiratory infection, unspecified Qualifiers: URI type: acute laryngitis Qualified Code(s): J04.0 - Acute laryngitis Plan: Strep swab negative. Sent flu COVID and RSV. Advised will call us for any of those are positive. Advised otherwise she should start taking an allergy pill daily, continue with hot tea or try something cold to help soothe her throat. Motrin, etc.. If her symptoms worsen or she has a fever she cannot control with Tylenol or Motrin, or she experiences shortness of breath. She should go to the emergency department or follow-up with her primary care doctor. Plan see above Orders: Orders SARS-CoV2/FLU/RSV Today J06.9 - Acute upper respiratory infection, unspecified Coding Level of Care Code New Pt Level 3 (95764) Diagnoses Acute laryngitis J04.0 URI type: acute laryngitis Time Spent (min) 15
== END 2023-12-04 11:20 | disposition home or self-care (01) ==
PROVIDERS: PCP Pediatrics; Visit Provider Physician Assistant
DX: J04.0 Acute laryngitis (principal)
CPT/HCPCS: 99203

== ENCOUNTER 2023-12-04 11:15 | Outpatient (REF) | payer OTHER, SELFPAY ==
[2023-12-04 14:44] LABS: Influenza A PCR NEGATIVE (Negative); Influenza B PCR NEGATIVE (Negative); Resp Syncy Virus RNA Qual PCR NEGATIVE (Negative); SARS COV2 PCR INHOUSE NEGATIVE (Negative)
== END 2023-12-04 11:16 | disposition home or self-care (01) ==
LOC: HO.LAB 11:15
PROVIDERS: Visit Provider Physician Assistant
DX: J06.9 Acute upper respiratory infection, unspecified (principal)
CPT/HCPCS: 0241U

== ENCOUNTER 2023-12-15 11:15 | Emergency (ER) | payer OTHER, SELFPAY ==
--- NOTE | ~2023-12-15 | XR_ITS ---
EXAMINATION: XR CHEST CLINICAL INFORMATION: Cough. COMPARISON: Chest radiograph 03/09/2023. TECHNIQUE: 2 views of the chest were obtained. FINDINGS: Normal appearance of the cardiomediastinal silhouette. No focal consolidation, pleural effusion or pneumothorax. No acute osseous findings. XR/XR chest 2V IMPRESSION: No acute cardiopulmonary findings.
[2023-12-15 11:28] VITALS: BP 137/86; PULSE 76; RESP 16; TEMP 36.3; O2SAT 100; BMI 52.3
--- NOTE | 2023-12-15 11:31 | ED_ITS ---
HPI - General Adult General Chief complaint: Nausea/Vomiting/Diarrhea Stated complaint: sore throat Time Seen by Provider: 12/15/23 11:39 Source: patient, RN notes reviewed and old records reviewed Mode of arrival: ambulatory History of Present Illness ED Provider: Irina Nielsen PA-C HPI narrative: 18-year-old female with a past medical history of epilepsy, obesity, presenting to the ED complaining cough, sore throat, chills, and rhinorrhea x3 wks. Also reports nausea and vomiting x few days. Was seen at urgent Care and her PCP tested negative for COVID/flu. Denies known fever, ear pain, SOB/CP, travel, sick contacts, abdominal pain Related Data Home Medications ?Medication ?Instructions ?Recorded ?Confirmed cholecalciferol (vitamin D3) 50 100 mcg PO DAILY 10/03/21 06/11/23 mcg (2,000 unit) capsule oxcarbazepine 300 mg 300 mg PO DAILY 10/03/21 06/11/23 tablet,extended release 24 hr (Oxtellar XR) oxcarbazepine 600 mg 1,200 mg PO QPM 10/03/21 06/11/23 tablet,extended release 24 hr (Oxtellar XR) naproxen sodium 550 mg tablet 550 mg PO BID 12/04/23 zonisamide 50 mg capsule mg PO 12/04/23 Previous Rx's ?Medication ?Instructions ?Recorded cyanocobalamin (vitamin B-12) 250 250 mcg PO DAILY #30 tabs 10/10/21 mcg tablet azithromycin 250 mg tablet See Rx Instructions PO .COMPLEX #6 12/15/23 tabs prednisone 20 mg tablet 40 mg (2 x 20 mg) PO DAILY 5 days 12/15/23 #10 tabs Allergies Allergy/AdvReac Type Severity Reaction Status Date / Time grass pollen Allergy Mild throat Verified 12/15/23 11:34 latex [LATEX] Allergy Unknown RASH Verified 12/15/23 11:34 Review of Systems Review of Systems: Constitutional: No Fever, + Chills ENT/Mouth: No Ear Pain, + Nasal Congestion, No Sinus Pain, No Hoarseness, + sore throat, + Rhinorrhea, No Swallowing Difficulty Cardiovascular: No Chest Pain, No SOB Respiratory: + Cough, No Sputum, No Wheezing Gastrointestinal: No Nausea, No Vomiting, No Diarrhea, No Constipation, No Abdominal pain Musculoskeletal: No joint pain, No Myalgias, No Joint Swelling Skin: No Skin Lesions, No rash Neuro: No Weakness Yes all other systems are reviewed and are negative Constitutional: Constitutional: Reports as per [facility] Past Medical History Attestation statement: The following information was validated with the patient. Source: old records reviewed Medical History Epilepsy Surgical History Hx of tonsillectomy Family History Family History Mother Diabetes Father No problems noted. Brother No problems noted. Sister No problems noted. Social History Social History Alcohol intake: never Patient Tobacco Use Status: Never used Tobacco Advance Directives: No Advance Directives Information Provided: Yes Do you have a plan to hurt others: No Plan Physical Exam ED Vital Signs: Vital Signs - 24 hr 12/15/23 11:28 12/15/23 14:01 Temperature 97.4 F 98.2 F Pulse Rate 76 74 Respiratory Rate 16 16 Blood Pressure 137/86 131/89 Pulse Oximetry 100 100 Oxygen Delivery Method Room Air Room Air BMI result Body Mass Index 52.3 Const General: cooperative, healthy appearing and no acute distress Orientation/consciousness: patient oriented x3 Limitations: no limitations [facility] Head: Yes normal to inspection and Yes atraumatic Ears: hearing grossly normal bilaterally, external ears normal, TM's normal bilaterally and mastoids normal General nose exam: Normal external nose present Face and sinus: Yes normal facial exam Mouth: no drooling Throat: Yes posterior oropharynx normal, Yes tonsils normal, Yes uvula midline, No uvula laterally displaced and No uvular edema Eyes General: appearance normal, both eyes and all related structures EOM: EOMs intact bilaterally Neck Neck: Yes normal visual inspection and Yes no meningeal signs Resp Effort & Inspection: normal respiratory effort, no grunting, not labored and no respiratory distress Auscultation: clear to auscultation bilaterally, no crackles, no rhonchi and no wheezes Cardio Rate: regular rate Heart sounds: S1 normal heart sound present and S2 normal heart sound present GI Inspection: Yes normal to inspection Palpation (GI): Soft to palpation, nontender, no guarding and not rigid Skin Rashes: no rashes Wounds: no wounds Neuro General: patient oriented x3, tone normal and no meningeal signs Cranial nerves: Yes CN's II-XII intact bilaterally Gait exam (Neuro): Normal gait present Extrem General: Yes normal to inspection Course Course Course Narrative: This is a Rapid Medical Examination (RME) performed by Louie Bell PA-C in triage. Full HPI, ROS, assessment and treatment plan per primary provider in the Main ED. 18 y/o female with history of epilepsy, morbid obesity who presents to the ER for evaluation of 2 -2.5 weeks of sore throat, coughing, not feeling well. prescribed allergy meds w/ no relief. has had 2 nonconsecutive days of N/V, one being today. no abd pain. no fever. Plan: viral studies, strep test, preg test -1339--COVID, flu, RSV negative. CXR unremarkable. Will treat patient for bronchitis Results discussed with patient including worrisome signs and symptoms and strict return precautions, and when to return to the emergency department. They verbalized understanding and feel safe for discharge at this time. Medical Decision Making Medical Decision Making [facility] Narrative: 18-year-old female with a past medical history of epilepsy, obesity, presenting to the ED complaining cough, sore throat, chills, and rhinorrhea x3 wks. Also reports nausea and vomiting x few days. On exam vital signs stable, NAD, nontoxic appearing, physical exam as noted above. Abdomen soft/nontender. Uvula midline, talking complete sentences. Concern for viral illness vs pneumonia vs bronchitis vs strep pharyngitis. No evidence of BATCH DUMPER/retropharyngeal abscess, low suspicion for appendicitis/diverticulitis. Plan: Viral testing, CXR, test Please refer to course for remaining clinical decision making, interpretation of labs/imaging results, and discussions with consultants and/or family members. Differential Diagnosis Differential Diagnoses: The differential diagnosis associated with the presentation includes As above Lab Data [facility] Lab Attestation statement: I reviewed the patient's lab results. Labs: Lab Results 12/15/23 12/15/23 Range/Units 11:40 12:28 Urine Color Yellow Urine Appearance Clear Urine pH 6.0 (5.0-9.0) Ur Specific [place] 1.025 (1.005-1.025) Urine Protein Negative (Neg-Trace) mg/dL Urine Glucose (UA) Negative (Negative) mg/dL Urine Ketones Negative (Negative) mg/dL Urine Blood Negative (Negative) Urine Nitrite Negative (Negative) Ur Leukocyte Esterase Negative (Negative) Urine Test NEGATIVE (NEGATIVE) Influenza Type A (PCR) NEGATIVE (Negative) Influenza Type B (PCR) NEGATIVE (Negative) RSV RNA Qual (PCR) NEGATIVE (Negative) SARS-CoV-2 RNA (RT-PCR) NEGATIVE (Negative) S. pyogenes GrpA YVES Negative (Negative) Independent Interpretation I performed an independent interpretation of an: Plain X-Ray Radiology Impression Discussion of test interpretation with radiology: I have reviewed the radiologist's reading. External Record Review External record reviewed: Inpatient record, Office record, Outpatient record, Prior outpatient labs, Prior outpatient radiology, Primary care record and Outside ED record Tests considered The following testing was considered but not selected: As above Prescription Management I considered prescription management with: Antibiotic Discharge Plan Discharge Clinical Impression: Bronchitis Patient Disposition: Home, Self-Care Instructions: Acute Bronchitis (ED) Additional Instructions: You tested negative for COVID, flu, RSV. Her x-ray does not show pneumonia Azithromycin as an antibiotic please take as prescribed In addition take prednisone Follow-up with her doctor If symptoms persist or worsen return to the ED Prescriptions: New azithromycin 250 mg tablet See Rx Instructions .ROUTE .COMPLEX Qty: 6 0RF Rx Instructions: take 500 mg today (day 1), then 250 mg for 4 days (days 2-5) prednisone 20 mg tablet 40 mg PO DAILY 5 Days Qty: 10 0RF No Action cyanocobalamin (vitamin B-12) 250 mcg tablet 250 mcg PO DAILY Qty: 30 5RF naproxen sodium 550 mg tablet 550 mg PO BID zonisamide 50 mg capsule PO Oxtellar XR 600 mg tablet extended release 24 hr 1,200 mg PO QPM Oxtellar XR 300 mg tablet extended release 24 hr 300 mg PO DAILY cholecalciferol (vitamin D3) 50 mcg (2,000 unit) capsule 100 mcg PO DAILY Referrals: Karla Gomez MD [Primary Care Provider] - 5 days Interventions: ED Discharge Assessment Last Done: 12/15/23 14:01 Discharge Date/Time: 12/15/23 14:02 Print Language: Indonesian
[2023-12-15 11:53] LABS: IDNOW Serial# 58CA691E; Strep A Nucleic Acid Negative (Negative)
[2023-12-15 12:23] LABS: Influenza A PCR NEGATIVE (Negative); Influenza B PCR NEGATIVE (Negative); Resp Syncy Virus RNA Qual PCR NEGATIVE (Negative); SARS COV2 PCR INHOUSE NEGATIVE (Negative)
[2023-12-15 12:39] LABS: Appearance Urine Clear; Color Urine Yellow; Glucose Urine UA Negative (Negative); Leukocyte Esterase Urine Negative (Negative); Nitrite Urine Negative (Negative); Specific Gravity - Urine 1.025 (1.005-1.025); Urine Blood Negative (Negative); Urine Ketones Negative (Negative); Urine Protein Negative (Neg-Trace)
[2023-12-15 12:40] LABS: UPreg QC Valid YES; Urine Pregnancy NEGATIVE (NEGATIVE)
[2023-12-15 14:01] VITALS: BP 131/89; PULSE 74; RESP 16; TEMP 36.8; O2SAT 100
== END 2023-12-15 14:02 | disposition home or self-care (01) ==
PROVIDERS: Physician Assistant; Emergency Provider Emergency Medicine Emergency Medical Services; PCP Pediatrics Adolescent Medicine
DX: J40 Bronchitis, not specified as acute or chronic (principal); Z03.818 Encounter for observation for suspected exposure to other biological agents ruled out; J02.9 Acute pharyngitis, unspecified; R05.9 Cough, unspecified
CPT/HCPCS: 0241U; 71046; 81003; 81025; 87651; 99283

== ENCOUNTER 2023-12-22 15:38 | Emergency (ER) | payer OTHER, SELFPAY ==
--- NOTE | ~2023-12-22 | CT_ITS ---
EXAMINATION: CT ABDOMEN AND PELVIS WITH CONTRAST CLINICAL INFORMATION: Right lower and left lower quadrant tenderness COMPARISON: None available. TECHNIQUE: Multidetector volumetric images were obtained from the superior aspect of the liver through the pubic symphysis following administration 85 mL of Omnipaque 350 intravenous contrast. Sagittal and coronal reformatted images were obtained on the technologist's workstation. Oral contrast: No This CT examination was performed using dose optimization techniques as appropriate, variously including the following: *Automated exposure control *Adjustment of mA and/or kV according to patient size (this includes techniques or standardized protocols for targeted exams where dose is matched to indication/reason for exam; i.e. extremities or head) *Use of iterative reconstruction technique DLP: 1034 mGy-cm FINDINGS: LUNG BASES: The visualized lung bases are unremarkable. LIVER, GALLBLADDER, AND BILIARY TREE: The liver is normal in size, shape, and attenuation. No focal hepatic lesion or biliary ductal dilatation is present. The gallbladder is unremarkable with no evidence of radiopaque gallstones, gallbladder wall thickening, or obvious pericholecystic inflammatory changes. PANCREAS: Unremarkable. SPLEEN: Unremarkable. ADRENAL GLANDS: Unremarkable. KIDNEYS AND URETERS: The kidneys are normal in size, shape, and attenuation. No hydronephrosis, hydroureter, or calculi seen. No perinephric stranding. BLADDER: Unremarkable. GASTROINTESTINAL TRACT: The small and large bowel are unremarkable. The appendix is unremarkable. ABDOMINAL WALL: No significant hernia is appreciated. LYMPH NODES: Normal. VASCULAR: Unremarkable. PELVIC VISCERA: Unremarkable. OSSEOUS STRUCTURES: Unremarkable. CT/CT abdomen pelvis w IV con IMPRESSION: No acute abdominopelvic pathology. Fleischner guidelines were followed.
--- NOTE | 2023-12-22 15:45 | ED_ITS ---
HPI - General Adult General Chief complaint: Nausea/Vomiting/Diarrhea Stated complaint: vomiting Time Seen by Provider: 12/22/23 19:03 Source: patient Mode of arrival: ambulatory Limitations: no limitations History of Present Illness ED Provider: heraclio JIANG narrative: Patient is a 18-year-old female with history of epilepsy presenting to the emergency department with complaint of vomiting after eating for the past four weeks. States she was seen here last Sunday for cough which was causing her to vomit. Cough has improved but vomiting has persisted. Denies prior abdominal surgeries. Can keep liquids down but is vomiting foods immediately after eating. Denies any diarrhea or constipation. Denies any urinary urgency, dysuria, hematuria or other urinary symptoms. Denies back or flank pain. Denies fevers. Denies recent unprotected intercourse or abnormal vaginal discharge. MD complaint: abdominal pain Onset (ago): week(s) Location: abdomen Radiation: non-radiation Severity: moderate Quality: aching Pain Consistency: colicky Associated symptoms: nausea/vomiting Related Data Home Medications ?Medication ?Instructions ?Recorded ?Confirmed cholecalciferol (vitamin D3) 50 100 mcg PO DAILY 10/03/21 06/11/23 mcg (2,000 unit) capsule oxcarbazepine 300 mg 300 mg PO DAILY 10/03/21 06/11/23 tablet,extended release 24 hr (Oxtellar XR) oxcarbazepine 600 mg 1,200 mg PO QPM 10/03/21 06/11/23 tablet,extended release 24 hr (Oxtellar XR) naproxen sodium 550 mg tablet 550 mg PO BID 12/04/23 zonisamide 50 mg capsule mg PO 12/04/23 Previous Rx's ?Medication ?Instructions ?Recorded cyanocobalamin (vitamin B-12) 250 250 mcg PO DAILY #30 tabs 10/10/21 mcg tablet azithromycin 250 mg tablet See Rx Instructions PO .COMPLEX #6 12/15/23 tabs prednisone 20 mg tablet 40 mg (2 x 20 mg) PO DAILY 5 days 12/15/23 #10 tabs Allergies Allergy/AdvReac Type Severity Reaction Status Date / Time grass pollen Allergy Mild throat Verified 12/22/23 15:49 latex [LATEX] Allergy Unknown RASH Verified 12/22/23 15:49 Review of Systems 2 Review of Systems: As per HPI. Yes all other systems are reviewed and are negative Constitutional: Constitutional: Reports as per [facility] Past Medical History Medical History Epilepsy Surgical History Hx of tonsillectomy Family History Family History Mother Diabetes Father No problems noted. Brother No problems noted. Sister No problems noted. Social History Social History Alcohol intake: never Patient Tobacco Use Status: Never used Tobacco Smoked in Last 30 Days: No Use of substances other than those prescribed or required for medical reasons: No Advance Directives: No Advance Directives Information Provided: No Do you have a plan to hurt others: No Plan Patient : No Physical Exam ED Vital Signs: Vital Signs - 24 hr 12/22/23 15:46 12/22/23 20:28 12/22/23 22:44 Temperature 98 F 97.8 F 98 F Pulse Rate 116 H 110 H 90 Respiratory Rate 19 20 18 Blood Pressure 143/94 H 121/83 137/88 Pulse Oximetry 99 100 100 Oxygen Delivery Method Room Air Room Air Room Air 12/23/23 00:53 12/23/23 01:04 Temperature 98.1 F 98.1 F Pulse Rate 100 100 Respiratory Rate 16 16 Blood Pressure 131/89 131/89 Pulse Oximetry 97 97 Oxygen Delivery Method Room Air Room Air BMI result Body Mass Index 51.0 Vital signs have been reviewed and appear to be correct. Blood pressure elevated. Heart rate mildly tachycardic. Respiratory rate normal. Temperature normal. Oxygen saturation normal. Const General: cooperative and no acute distress Nutritional Appearance: obese Orientation/consciousness: oriented to person, oriented to place, oriented to time and patient oriented x3 Limitations: no limitations HENMT Head: Yes normocephalic and Yes atraumatic Ears: external ears normal General nose exam: Normal external nose present Face and sinus: Yes face symmetric Mouth: oropharynx normal and moist mucous membranes Throat: Yes uvula midline Eyes Pupils: Equal, round and reactive pupils present Neck Neck: Yes normal visual inspection and Yes supple Resp Effort & Inspection: normal respiratory effort and able to speak in complete sentences Auscultation: clear to auscultation bilaterally Cardio Rate: regular rate Rhythm: regular rhythm Heart sounds: S1 normal heart sound present and S2 normal heart sound present GI Palpation (GI): Soft to palpation, Tenderness to palpation present (GI) in the LLQ and in the RLQ, no guarding and No Rebound tenderness present Auscultation: normoactive bowel sounds General: Yes no CVA tenderness Back/Spine/Pelvis Back: no CVA tenderness Skin General skin exam: elasticity normal and turgor normal Neuro General: oriented to person, oriented to place, oriented to time, patient oriented x3, moves all extremities, no focal motor deficits and CN's II-XI intact bilaterally Cranial nerves: Yes Equal, round and reactive pupils present Cognition (Neuro): normal cognition Extrem General: Yes full ROM, Yes no pedal edema and Yes no calf tenderness Psych Mental Status: mental status grossly normal Affect: normal affect Thought process: Normal thought process present Course Reevaluation(s) Reevaluation #1: Sign-out was given to me pending CT scan and re-evaluation. Patient states that she was having some nausea therefore I medicated her with Zofran. P.o. challenge was performed and patient still reports vomiting. This happened after having coughing fit. Patient states that she has been vomiting the last 3 weeks, mother that is after coughing or just after eating food. She was seen by her primary care physician who stated to just drink Gatorade. They also prescribed azithromycin, Zofran, and prednisone for bronchitis. This did not help her with any symptomatic relief. I discussed workup with patient today reporting that labs, CT scan was unremarkable. She is well-appearing, has been able to tolerate some fluids in the department. I discussed that we can admit her to the hospital for further workup due to intractable nausea and vomiting however patient refuses and would like to follow-up outpatient. I discussed that we can refer to GI who they are agreeable to. Mother requesting prescription for medication to stop vomiting. I discussed with mother that given Zofran was not beneficial, this is not a medication that we should routinely prescribed for nausea if it has not helpful in the department. She understands. Given return precautions, stable for discharge. Medications Administered Discontinued Medications Generic Name Dose Route Start Last Admin Trade Name Freq PRN Reason Stop Dose Admin Al Hydroxide/Mg Hydroxide 15 ml 12/22/23 20:53 12/22/23 21:17 Magnesium Hydrox/Alum Hydrox 30 Ml Oral.Susp PO 12/22/23 20:54 15 ml ONCE ONE Administration Sodium Chloride 1,000 mls @ 999 mls/hr 12/22/23 21:00 12/22/23 23:45 Ns IV 12/22/23 22:00 Infused .Q1H1M MARCOS Infusion Iohexol 85 ml 12/22/23 20:10 12/22/23 20:11 Iohexol 350 Mg/Ml 100 Ml Infus..Btl IV 12/22/23 20:11 85 ml ONCE ONE Administration Lidocaine HCl 5 ml 12/22/23 20:53 12/22/23 21:16 Lidocaine Hcl Viscous 2 % 15 Ml Solution MUCOUS MEM 12/22/23 20:54 5 ml ONCE ONE Administration Ondansetron HCl 4 mg 12/22/23 23:24 12/22/23 23:39 Ondansetron Hcl 4 Mg/2 Ml Vial IVPUSH 12/22/23 23:25 4 mg ONCE ONE Administration Medical Decision Making Medical Decision Making [facility] Narrative: Patient is a 18-year-old female with history of epilepsy presenting to the emergency department with complaint of vomiting after eating for the past four weeks. On exam patient is awake, A+Ox3, mildly tacycardic, VS otherwise WNL, afebrile, normal neurological exam without focal deficits, physical exam findings as above. Given reported symptoms and physical exam findings, initial differential includes UTI, appendicitis, diverticulitis, GERD, PUD. Labs notable for no leukocytosis, no anemia, no electrolyte abnormalities, negative HCG. Urinalysis is without evidence of infection. IV fluids and GI cocktail ordered. Patient signed out to TEE Romero pending CT A/P. Differential Diagnosis Differential Diagnoses: The differential diagnosis associated with the presentation includes As per [facility] Lab Data [facility] Lab Attestation statement: I reviewed the patient's lab results. As per [facility] 12/22/23 16:07 12/22/23 16:07 Labs: Lab Results 12/22/23 12/22/23 Range/Units 16:07 16:17 WBC 7.4 (4.8-10.8) X10*3/uL RBC 4.79 (4.20-5.50) X10*6/uL Hgb 12.7 (12.0-16.0) g/dl Hct 39.0 (37.0-47.0) % MCV 81.4 (80.0-98.0) fL MCH 26.5 L (27.0-33.0) pg MCHC 32.6 (31.0-35.0) g/dl RDW 13.8 (11.0-16.0) % Plt Count 263 (160-400) X10*3/uL MPV 10.2 (9.4-12.3) fL Immature Gran % (Auto) 0.4 (0.0-0.4) % Neut % (Auto) 68.2 (45-73) % Lymph % (Auto) 17.9 L (20-40) % [place] % (Auto) 12.3 H (2-11) % Eos % (Auto) 0.7 (0-4) % Baso % (Auto) 0.5 (0-2) % Lymph # (Auto) 1.3 (1.2-4.9) X10*3/uL [place] # (Auto) 0.9 (0.1-1.2) X10*3/uL Eos # (Auto) 0.1 (0.0-0.4) X10*3/uL Baso # (Auto) 0.0 (0.0-0.2) X10*3/uL Abs Immat Gran (auto) 0.03 (0.00-0.03) X10*3/uL Absolute Neuts (auto) 5.0 (2.0-8.3) x10*3/uL Absolute Nucleated RBC 0.000 (0.0-0.012) X10*3/uL Nucleated RBC % (auto) 0.0 (0.0-0.2) /100WBC Sodium 139 (135-145) mmol/L Potassium 4.0 (3.3-5.1) mmol/L Chloride 104 (96-108) mmol/L Carbon Dioxide 27 (22-29) mmol/L Anion Gap 12 (12-20) BUN 9 (9-16) mg/dL Creatinine 0.86 (0.5-1.4) mg/dL Estim Creat Clear Calc 147.9 Estimated GFR > 60 Random Glucose 95 (60-115) mg/dL Calcium 9.6 (8.4-10.2) mg/dL Magnesium 2.0 (1.6-2.6) mg/dL Total Bilirubin 0.4 (0.0-1.0) mg/dL AST 14 (5-31) U/L ALT 15 (0-31) U/L Alkaline Phosphatase 97 (39-117) U/L Total Protein 8.0 (6.5-8.0) g/dL Albumin 4.2 (3.5-5.0) g/dL Beta HCG, Quant < 2 mIU/mL Urine Color Yellow Urine Appearance Clear Urine pH 6.5 (5.0-9.0) Ur Specific [place] <= 1.005 (1.005-1.025) Urine Protein Negative (Neg-Trace) mg/dL Urine Glucose (UA) Negative (Negative) mg/dL Urine Ketones Negative (Negative) mg/dL Urine Blood Negative (Negative) Urine Nitrite Negative (Negative) Ur Leukocyte Esterase Negative (Negative) Independent Interpretation I performed an independent interpretation of an: CT Scan Interpretation: CT/CT abdomen pelvis w IV con IMPRESSION: No acute abdominopelvic pathology. Fleischner guidelines were followed. Dictated By: Rj Schilling External Record Review External record reviewed: Inpatient record, Office record and Outpatient record Discharge Plan Discharge Clinical Impression: Vomiting Patient Disposition: Home, Self-Care Instructions: Acute Nausea and Vomiting (ED) Additional Instructions: You were seen in the emergency department due to vomiting. Your blood work today was reassuring. You are not . Your CT scan was normal. It is unclear what is causing you to have vomiting however workup today was reassuring. Please drink plenty of fluids get plenty of rest. Your urine does not appear to be infected. If any new or worsening symptoms occur including but not limited to worsening vomiting, severe abdominal pain, chest pain, shortness breast, please return for re-evaluation. Prescriptions: No Action cyanocobalamin (vitamin B-12) 250 mcg tablet 250 mcg PO DAILY Qty: 30 5RF azithromycin 250 mg tablet See Rx Instructions .ROUTE .COMPLEX Qty: 6 0RF Rx Instructions: take 500 mg today (day 1), then 250 mg for 4 days (days 2-5) prednisone 20 mg tablet 40 mg PO DAILY 5 Days Qty: 10 0RF naproxen sodium 550 mg tablet 550 mg PO BID zonisamide 50 mg capsule PO Oxtellar XR 600 mg tablet extended release 24 hr 1,200 mg PO QPM Oxtellar XR 300 mg tablet extended release 24 hr 300 mg PO DAILY cholecalciferol (vitamin D3) 50 mcg (2,000 unit) capsule 100 mcg PO DAILY Referrals: [facility] [Provider Group] Interventions: ED Discharge Assessment Last Done: 12/23/23 01:04 Print Language: [place] Arabian
[2023-12-22 15:46] VITALS: BP 143/94; PULSE 116; RESP 19; TEMP 36.6; O2SAT 99; BMI 51.0
[2023-12-22 16:18] LABS: MANUAL DIFF FLAG NO
[2023-12-22 16:23] LABS: Basophils Percent Auto 0.5 % (0-2); Eosinophils Absolute Auto 0.1 X10*3/uL (0.0-0.4); Eosinophils Percent Auto 0.7 % (0-4); Hemoglobin 12.7 g/dl (12.0-16.0); Imm Gran Abs Auto 0.03 X10*3/uL (0.00-0.03); Imm Gran Pct Auto 0.4 % (0.0-0.4); Lymphocytes Absolute Auto 1.3 X10*3/uL (1.2-4.9); Lymphocytes Percent Auto 17.9 % (20-40); Mean Corpuscular HGB Conc 32.6 g/dl (31.0-35.0); Mean Corpuscular Hemoglobin 26.5 pg (27.0-33.0); Mean Corpuscular Volume 81.4 fL (80.0-98.0); Mean Platelet Volume 10.2 fL (9.4-12.3); Monocytes Absolute Auto 0.9 X10*3/uL (0.1-1.2); Monocytes Percent Auto 12.3 % (2-11); Neutrophils Percent Auto 68.2 % (45-73); Platelet Count 263 X10*3/uL (160-400); Red Blood Count 4.79 X10*6/uL (4.20-5.50); Red Cell Distribution Width 13.8 % (11.0-16.0); White Blood Count 7.4 X10*3/uL (4.8-10.8)
[2023-12-22 16:30] LABS: Appearance Urine Clear; Color Urine Yellow; Glucose Urine UA Negative (Negative); Leukocyte Esterase Urine Negative (Negative); Nitrite Urine Negative (Negative); PH 6.5 (5.0-9.0); Specific Gravity - Urine <= 1.005 (1.005-1.025); Urine Blood Negative (Negative); Urine Ketones Negative (Negative); Urine Protein Negative (Neg-Trace)
[2023-12-22 16:49] LABS: Alanine Aminotransferase 15 U/L (0-31); Albumin Level 4.2 g/dL (3.5-5.0); Alkaline Phosphatase 97 U/L (39-117); Anion Gap 12 (12-20); Aspartate Amino Transferase 14 U/L (5-31); Bilirubin Total 0.4 mg/dL (0.0-1.0); Blood Urea Nitrogen 9 mg/dL (9-16); Calcium 9.6 mg/dL (8.4-10.2); Carbon Dioxide 27 mmol/L (22-29); Chloride 104 mmol/L (96-108); Creatinine Clr Calc Pharmacy 147.9; Estimated Glomerular Filt Rate > 60; Glucose Random 95 mg/dL (60-115); HCG Quantitative < 2 mIU/mL; Sodium 139 mmol/L (135-145)
[2023-12-22] MEDS: iohexoL 350 MG/ML 100 ML INFUS..BTL 85 ML IV (20:11)
[2023-12-22 20:28] VITALS: BP 121/83; PULSE 110; RESP 20; TEMP 36.6; O2SAT 100
[2023-12-22] MEDS: 0.9 % Sodium Chloride 1,000 ML 999 ML IV (21:12)
[2023-12-22] MEDS: Lidocaine HCl Viscous 2 % 15 ML SOLUTION 5 ML MUCOUS MEM (21:16)
[2023-12-22] MEDS: Magnesium Hydrox/Alum Hydrox 30 ML ORAL.SUSP 15 ML PO (21:17)
[2023-12-22 22:44] VITALS: BP 137/88; PULSE 90; RESP 18; TEMP 36.6; O2SAT 100
--- NOTE | 2023-12-22 23:27 | PC.NURSE ---
Pt previously up for discharge, PA to bedside to review results and discuss plan. PA to triage to make this RN aware that the plan has since changed. pt to be given ODT zofran and then PO challenged to ensure she can keep fluids down
[2023-12-22] MEDS: ondansetron HCL 4 MG/2 ML VIAL IVPUSH (23:39)
--- NOTE | 2023-12-23 00:25 | PC.NURSE ---
RN and PA to bedside to check in on patient's PO challenge. Upon entry into the room the patient was noted to be sitting upright on the edge of the bed with emesis bag in her lap. Pt denies improvement in nausea s/pIVP zofran adding that she continued to vomit the water that this RN provided her with and she said can i just get my discharge papers, there's nothing wrong with me I just rather go home . PA reassured the pt all ED work up was negative but did offer the patient the option of dc home (per request) or admission for further fluid administration and oversight of her inability to tolerate PO. Pt declined admission and continued to request dc home, PA encouraged the patient to follow up with her PCP and to request a GI referral
[2023-12-23 00:53] VITALS: BP 131/89; PULSE 100; RESP 16; TEMP 36.7; O2SAT 97
[2023-12-23 01:04] VITALS: BP 131/89; PULSE 100; RESP 16; TEMP 36.7; O2SAT 97
--- OUTSIDE RECORDS SUMMARY | 2023-12-27 07:11 | XMS_ITS | Summary of Care ---
Author Organization [facility] Address [address] [place] [id number]- Care Team Providers Care Dentist/Owner Name Role Phone KELSEY VARGAS MD Primary Care Physicia n Encounter CHB_CSN [id number] Date(s): 12/15/23 - 12/15/[address] [id number]- Discharge Disposition: Discharge Attending Physician: JOSUÉ DAVIS MD Referring Physician: LEONID MARI MD Allergies, [...] Personnel Name: KELSEY VARGAS MD Address: Address: [address] [place] [id number]-
== END 2023-12-23 01:30 | disposition home or self-care (01) ==
PROVIDERS: Registered Nurse Emergency; Emergency Provider Student in an Organized Health Care Education/Training Program
DX: R11.2 Nausea with vomiting, unspecified (principal); R00.0 Tachycardia, unspecified
CPT/HCPCS: 36415; 74177; 80053; 81003; 83735; 84702; 85025; 96361; 96374; 99284; J2405; Q9967

== ENCOUNTER 2024-02-07 11:21 | Outpatient (AMB) | payer OTHER, SELFPAY ==
--- NOTE | 2024-02-07 11:29 | MHC.OFFVISWM ---
VS Expanded 02/07/24 11:46 BP 131/74 Blood Pressure Location Rt brachial Blood Pressure Position Sitting Pulse 91 Pulse Source Pulse Oximeter Temp 96.6 F L Temperature Source Temporal Artery Scan Pulse Oximetry 98 Oxygen Delivery Method Room Air Height 5 ft 5 in Weight 288 lb 3.2 oz BMI 48.0 Body Fat % 46.0 Body Fat Mass 132.4 Fat Free Mass 155.6 Visceral Fat Rating 13.0 Body Water % 38.9 Body Water Mass 112.0 Muscle Mass/Score 148.0 Basal Metabolic Rate/Score 2,282 Intake Visit Reasons: (OV) F/U SWL Allergies grass pollen Allergy (Mild, Verified 02/07/24 11:41) throat latex [LATEX] Allergy (Unknown, Verified 02/07/24 11:41) RASH HPI Comments Details: The patient is a pleasant 18 year old female who returns to the clinic for pre-operative surgical weight loss management. They were last seen in the office in October of 2023, recorded weight at that time was 301.6 pounds, with a BMI of 50.2. She states that she has not been seen in threee months as she had been sick. States that she is feeling better. Today's weight is 288.2 pounds and BMI is 47.9. There has been a weight loss of 13.6 pounds since initiating the surgical weight loss program on 02/26/23. She saw GI in [place] who states that she can eat and drink what she wants. Not currently following any meal plan. Pre op work up completed as follows: SWL classes:? BH appts: cleared 04/06/23? ? RD appts: needs f/u Labs: 03/09/23-low B1 H. pylori: not yet done CXR: 03/09/23-nad EK03/09/23-normal ABD U/S: 03/29/23-normal UGI: 06/23/23-fatty liver The patient reports she has not been following a meal plan or exercise plan. previous recommended meal plan includes: 2 Premier Protein shakes ([employer], [employer], [employer]), First shake (1 scoop in 8 oz low fat unsweetened almond milk or water) at 9am-11am 1 protein bar (Fulfil bars at [employer], [facility], or [employer]) at 12pm-2pm. Another shake with 1 scoop in 8 oz unsweetened almond milk at 2pm-4pm. Dinner at 4pm (10 forks of protein and 10 forks of salad/vegetables). Another bar at 7pm-9pm. Drinking 48-64 oz of water Current exercise plan includes: walking outside. daily, not tracking calories nothing on the other days. [facility] Medical History Epilepsy Surgical History Hx of tonsillectomy Family History Mother Diabetes Father No problems noted. Brother No problems noted. Sister No problems noted. Social History Alcohol intake: never Patient Tobacco Use Status: Never used Tobacco Physical Exam Vital Signs: Last Vital Signs Temp 96.6 F L 02/07/24 11:46 Pulse 91 02/07/24 11:46 BP 131/74 02/07/24 11:46 Pulse Ox 98 02/07/24 11:46 Oxygen Delivery Method Room Air 02/07/24 11:46 BMI result Body Mass Index 48.0 Const General: healthy appearing and no acute distress Resp Effort & Inspection: normal respiratory effort Auscultation: clear to auscultation bilaterally Cardio Rate: regular rate Rhythm: regular rhythm GI Auscultation: normal bowel sounds Extrem General: Yes normal to inspection Assessment & Plan Assessment & Plan (1) Morbid obesity: Code(s): E66.01 - Morbid (severe) obesity due to excess calories Category: Medical Plan: Patient will be given another opportunity to succeed in our program. She has not been following any particular meal plan or exercise plan. We will have her return to the above recommended meal plan, discussed [employer] sherif to download on her phone to track her calories while walking outside. We will plan for a return visit in approximately 4-6 weeks with the understanding that if she is successful, then she can certainly continue in our program however given that it has been a year and she has lost only 13 lb, this may not be the right program for her. She agrees to this plan and we will discuss it at her next visit.
[2024-02-07 11:46] VITALS: BP 131/74; PULSE 91; TEMP 35.9; O2SAT 98; BMI 48.0
== END 2024-02-07 12:24 | disposition home or self-care (01) ==
PROVIDERS: Visit Provider Physician Assistant Surgical
DX: E66.01 Morbid (severe) obesity due to excess calories (principal); Z68.42 Body mass index [BMI] 45.0-49.9, adult
CPT/HCPCS: 99213

== ENCOUNTER → 2024-02-07 11:21 | Outpatient (BNVA) | payer OTHER, SELFPAY | PROVIDERS: Visit Provider Physician Assistant Surgical | DX: E66.01 Morbid (severe) obesity due to excess calories (principal); Z68.42 Body mass index [BMI] 45.0-49.9, adult | CPT/HCPCS: 99212 ==